=== PATIENT | male | born 1960 | race Caucasian/White ===

== ENCOUNTER 2017-08-05 13:17 | Inpatient (IN) ==
--- NOTE | 2017-08-05 13:46 | Emergency Department Note ---
START Narrative - START START: I examined this patient and my medical decision-making was reviewed with the SPECIAL EFFECTS SPECIALIST/PA/Advanced Practice Nurse/Resident Physician. I agree with the documented findings, disposition and treatment plan as described except to the extent set forth below. I did see the patient upon arrival and he does have advanced lung cancer and did stop chemotherapy 6 months ago and he does have vomiting as well as abdominal pain and on my exam does have some significant pain with guarding and rigidity. Testing pending. The patient received IV fluids and antiemetics. [id number]
[2017-08-05] MEDS ORDERED: Ondansetron 4 MG/2 ML VIAL IVP ONE (13:48)
[2017-08-05] MEDS ORDERED: *HR* FentaNYL (PF) 100 MCG/2 ML VIAL IVP ONE ×5 (13:48→18:25)
--- NOTE | 2017-08-05 14:22 | Emergency Department Note ---
Disposition Clinical Impression: Intractable nausea and vomiting Qualifiers: Vomiting type: unspecified Qualified Code(s): R11.2 - Nausea with vomiting, unspecified Pneumonia Qualifiers: Pneumonia type: due to unspecified organism Laterality: right Lung location: lower lobe of lung Qualified Code(s): J18.1 - Lobar pneumonia, unspecified organism Disposition: Admitted As Inpatient Condition: Fair Reasons to Return/Additional Instructions: Admitted as inpatient Forms: ED Satisfaction Letter, Work/School Release Time of Disposition: 16:33 Abdominal Pain HPI - General Chief Complaint: ED Abdominal Pain Stated Complaint: N/V abd pain Source: patient Mode of arrival: ambulatory Limitations: no limitations Nursing Notes Reviewed: Yes Vital Signs Reviewed: Yes - History of Present Illness HPI Narrative: 56-year-old male with past medical history of stage IV lung carcinoma presents to emergency room with complaint of abdominal pain, nausea, vomiting. This has been present for the past 2 days and he describes it as burning in nature and located diffusely across the abdomen with the worst in the epigastric region. It is associated nausea and vomiting of food contents with some bloody streaking. Denies any changes in bowel movements. States he is not measuring temperatures but he does feel subjective fevers and chills. No exacerbating or relieving symptoms. His appetite has been decreased during this time. He is currently not receiving any form of chemotherapy or radiation but does follow with Dr. Richter at the [facility], [place]. Most recent chemotherapy approximately 6 months ago. Pain Scale: 10 - Related Data Home Medications Medication Instructions Recorded Confirmed Albuterol Sulfate [Proair Hfa] 2 puff IH Q4H PRN 06/10/16 02/16/17 Budesonide/Formoterol 160/4.5 2 puff IH BIDR 06/10/16 02/16/17 [Symbicort 160/4.5] Previous Rx's Medication Instructions Recorded Magic Mouthwash [Magic Mouthwash 10 ml PO QID PRN #240 ml 05/12/16 BLM] Ondansetron HCl [Zofran] 4 mg PO Q6H PRN #30 tablet 05/12/16 Prochlorperazine Maleate 10 mg PO Q6HR PRN #60 tablet 05/12/16 [Compazine] Ferrous Sulfate [Iron] 325 mg PO DAILY #30 tablet 08/05/16 Aspirin Enteric Coated [Aspirin EC] 81 mg PO DAILY #30 tablet. 09/04/16 Omeprazole [PriLOSEC] 20 mg PO DAILY #30 cap 09/04/16 Guaifenesin/Codeine Phosphate 5 - 10 ml PO Q4H PRN #473 liquid 10/15/16 [Guaifenesin-Codeine Syrup] Morphine Sulfate SR (12 HR) [MS 15 mg PO BID PRN #60 tablet.er 02/03/17 Contin] OxyCODONE Immed Rel [Roxicodone 20 20 mg PO TID #90 tab 02/03/17 MG] Lactose-Reduced Food [Ensure Plus] 1 bottle PO TID #90 can 02/16/17 Acetaminophen w/Cod 300-30 mg 1 each PO Q6HR PRN #12 tablet 06/23/17 [Tylenol w/Codeine #3] Allergies Allergy/AdvReac Type Severity Reaction Status Date / Time No Known Allergies Allergy Verified 06/23/17 14:44 All systems ED: reviewed and negative except as stated. Review of Systems: As Per HPI Abdominal Pain PMH - Past Medical History Medical history: Reports: cancer, COPD, other Male Surgical History: Reports: no surgical history Psychiatric history: Reports: no psych history - Social History Smoking status: Current every day smoker Alcohol use: Reports: none Drug use: Reports: none Physical Exam - General Limitations: no limitations General appearance: alert - Head Head exam: atraumatic - ENT ENT exam: normal exam, normal oropharynx, mucous membranes moist - Chest Chest inspection: Present: normal inspection, symmetric chest wall rise - Respiratory Respiratory exam: Present: normal lung sounds bilaterally - Cardiovascular Cardiovascular exam: Present: regular rate, normal rhythm, normal heart sounds - Abdominal Exam Abdominal exam: Present: soft, tenderness, guarding, normal bowel sounds. Absent: distention, rebound, rigidity Abdominal tenderness: Present: epigastrium, suprapubic - Extremities Exam Extremities exam: Present: normal inspection, full ROM. Absent: tenderness, pedal edema - Neurological Exam Neurological exam: Present: alert, oriented X3 - Psychiatric Psychiatric exam: Present: normal affect, normal mood, anxious - Skin Skin exam: Present: warm, dry, intact, normal color Course Course Narrative: We will obtain lab results of CBC, BMP, troponin, lipase. We will obtain symptom control with fentanyl and Zofran and Phenergan. Also obtain abdominal CAT scan Vital Signs Temperature 97.5 F L 08/05/17 13:20 Pulse Rate 83 08/05/17 13:20 Respiratory Rate 22 08/05/17 13:20 Blood Pressure 151/98 08/05/17 13:20 O2 Sat by Pulse Oximetry 99 08/05/17 13:20 Temperature 97.5 F L 08/05/17 13:20 Pulse Rate 83 08/05/17 13:20 Respiratory Rate 22 08/05/17 13:20 Blood Pressure 151/98 08/05/17 13:20 O2 Sat by Pulse Oximetry 99 08/05/17 13:20 Oxygen Delivery Oxygen Delivery Room Air Abdominal Pain - MDM Narrative Medical decision making narrative: 56-year-old male with a history of stage IV lung cancer presents with complaint of abdominal pain, nausea, vomiting. Lab results grossly unremarkable. Abdominal CT scan did reveal metastasis to the adrenal glands as well as a right lower lobe pneumonia. No obvious etiology of his nausea and vomiting aside from metastatic cancer. Patient received multiple doses of fentanyl for pain control and received Zofran for nausea. He did continue to complain of nausea, vomiting and he was given Phenergan with some relief. Did discuss this admission with the hospitalist, who agrees remission at this time for intractable nausea, right lower lobe pneumonia. - Lab Data Result diagrams: 08/05/17 14:32 08/05/17 14:32 Lab Results 08/05/17 08/05/17 08/05/17 Range/Units 14:32 14:32 14:32 WBC 8.5 (4.3-11.1) K/mcL RBC 3.97 L (4.19-5.50) M/mcL Hgb 12.6 L (12.9-16.9) g/dL Hct 37.1 L (37.5-50.1) % MCV 93.5 (83.0-100.0) fL MCH 31.7 (28.0-33.3) pg MCHC 34.0 (31.6-35.5) g/dL RDW 13.2 (11.5-14.5) % Plt Count 343 (140-400) K/mcL MPV 8.6 L (9.4-12.4) fL Immature Gran % 0.4 (0-4) % Seg Neutrophils % 88.4 % Lymphocytes % 7.7 % Monocytes % 3.2 % Eosinophils % 0.2 % Basophils % 0.1 % Neutrophils # 7.5 (1.6-8.9) K/mcL Lymphocytes # 0.7 (0.6-4.6) K/mcL Monocytes # 0.3 (0.0-1.3) K/mcL Eosinophils # 0.0 (0.0-0.6) K/mcL Basophils # 0.0 (0.0-0.2) K/mcL Nucleated RBCs/100 WBC 0.2 H (0) /100 WBC Sodium 134 L (136-145) mEq/L Potassium 4.3 (3.5-5.1) mEq/L Chloride 102 (98-107) mEq/L Carbon Dioxide 25 (23-29) mEq/L BUN 9 (6-20) mg/dL Creatinine 0.56 L (0.70-1.30) mg/dL Est GFR ( Amer) > 60 (> 60) Est GFR (Non-Af Amer) > 60 (> 60) BUN/Creatinine Ratio 16 (6-26) Glucose 133 H (70-105) mg/dL Calculated Osmolality 279 L (280-300) Lactic Acid 0.5 (0.5-2.2) mmol/L Calcium 9.7 (8.6-10.3) mg/dL Total Bilirubin 0.5 (0.3-1.0) mg/dL Direct Bilirubin 0.1 (0.0-0.2) mg/dL Indirect Bilirubin 0.4 (0.0-1.2) mg/dL AST 12 L (13-39) Units/L ALT 14 (7-52) Units/L Alkaline Phosphatase 97 (34-104) Units/L Serum Total Protein 6.8 (6.4-8.9) g/dL Albumin 3.9 (3.5-5.7) g/dL Globulin 2.9 (2.4-3.5) g/dL Albumin/Globulin Ratio 1.3 (1.1-2.2)
[2017-08-05 14:51] LABS: Basophils % 0.1 %; Eosinophils % 0.2 %; Hematocrit 37.1 % (37.5-50.1); Hemoglobin 12.6 g/dL (12.9-16.9); Immature Granulocytes % 0.4 % (0-4); Lymphocytes # 0.7 K/mcL (0.6-4.6); Lymphocytes % 7.7 %; Mean Corpuscular Hemoglobin 31.7 pg (28.0-33.3); Mean Corpuscular Volume 93.5 fL (83.0-100.0); Mean Platelet Volume 8.6 fL (9.4-12.4); Monocytes # 0.3 K/mcL (0.0-1.3); Monocytes % 3.2 %; Neutrophils # 7.5 K/mcL (1.6-8.9); Nucleated Red Blood Cells 0.2 /100 WBC (0); Platelet Count 343 K/mcL (140-400); Red Blood Count 3.97 M/mcL (4.19-5.50); Red Cell Distribution Width 13.2 % (11.5-14.5); Segmented Neutrophils % 88.4 %
[2017-08-05 15:07] LABS: Alanine Aminotransferase 14 Units/L (7-52); Albumin 3.9 g/dL (3.5-5.7); Albumin/Globulin Ratio 1.3 (1.1-2.2); Alkaline Phosphatase 97 Units/L (34-104); Aspartate Amino Transferase 12 Units/L (13-39); BUN/Creatinine Ratio 16 (6-26); Bilirubin,Direct 0.1 mg/dL (0.0-0.2); Bilirubin,Indirect 0.4 mg/dL (0.0-1.2); Bilirubin,Total 0.5 mg/dL (0.3-1.0); Blood Urea Nitrogen 9 mg/dL (6-20); Calcium 9.7 mg/dL (8.6-10.3); Carbon Dioxide 25 mEq/L (23-29); Chloride 102 mEq/L (98-107); Globulin 2.9 g/dL (2.4-3.5); Glucose 133 mg/dL (70-105); Osmolality,Calculated 279 (280-300); Potassium 4.3 mEq/L (3.5-5.1); Sodium 134 mEq/L (136-145); Total Protein 6.8 g/dL (6.4-8.9); eGFR For African Americans > 60 (> 60); eGFR For Non-African Americans > 60 (> 60)
[2017-08-05] MEDS ORDERED: *HR* Promethazine 25 MG/ML VIAL IVP ONE (15:42)
[2017-08-05] MEDS ORDERED: Naloxone 0.4 MG/ML INJ IVP PRN (17:10)
--- NOTE | 2017-08-05 17:15 | Event Note ---
Date of Encounter: 08/05/17 Time of Encounter: 17:12 1. Respiratory distress likely secondary to community-acquired pneumonia, unknown agents *Levaquin, blood cultures 2. History of COPD not oxygen dependent, mild exacerbation Continue Solu-Medrol, duo nebs and oxygen therapy 3. History of lung cancer/metastatic, followed by oncology 4. Tobacco abuse, nicotine patch 5. Intractable epigastric/abdominal pain with intractable nausea and vomiting, may try Dilaudid oral and consider IV pain control Phenergan and Dilaudid as needed CT scan of the abdomen shows no abdominal active findings, only right lower lobe pneumonia *Protonix for GI prophylaxis and Lovenox for DVT prophylaxis. The patient will be admitted for observation. Full code. Time spent on this admission 40 minutes H&P will be dictated by WILIAN Valentine
--- NOTE | 2017-08-05 17:19 | Internal Med History&Physical ---
<Indra Valentine J - Last Filed: 08/05/17 17:28> Date of Encounter: 08/05/17 Time of Encounter: 17:17 Assessment and Plan (1) Pneumonia Current visit: Yes Status: Acute Presents today with respiratory distress secondary to CAP. Does not appear septic, not meeting SIRS criteria. Resting comfortably on room air now. CT of chest shows a patchy airspace opacity in the right lower lobe - Levaquin - blood cultures - Duonebs - solumedrol - CBCD, CMP in AM - Tylenol 650 mg PO q 4-6 hr PRN pain or fever - Resume - Heparin 5000 U SQ BID - Respiratory support per NC; titrate to maintain Spo2 >92% - Continuous tele, and Spo2 monitoring Qualifiers: Pneumonia type: due to unspecified organism Laterality: right Lung location: lower lobe of lung Qualified Code(s): J18.1 - Lobar pneumonia, unspecified organism (2) Intractable nausea and vomiting Current visit: Yes Status: Acute Intractable nausea and vomiting with epigastric/abdominal pain. CT of abdomen and pelvis unremarkable. He has received fentanyl in the emergency department without any relief of pain. He reports that he is unable to swallow. I witnessed him retching multiple times throughout my assessment. It is unclear whether or not he could tolerate oral Dilaudid at this time. We may need to consider IV Dilaudid for better pain control -Continue Phenergan and Zofran -IV Dilaudid with goal to add oral pain medications once nausea and vomiting subside -Protonix for GI prophylaxis Qualifiers: Vomiting type: unspecified Qualified Code(s): R11.2 - Nausea with vomiting , unspecified (3) COPD (chronic obstructive pulmonary disease) Current visit: Yes Status: Acute History of COPD, not in acute exacerbation. Does not wear O2 at home, currently resting comfortable on room air. Initially presented with some mild respiratory distress but it has since subsided. -Continue duo nebs and Solu-Medrol -Nasal cannula as needed for respiratory support Qualifiers: COPD type: unspecified COPD Qualified Code(s): J44.9 - Chronic obstructive pulmonary disease, unspecified (4) Tobacco abuse Current visit: Yes Status: Acute Continues to smoke, nicotine patch (5) Non-small cell cancer of right lung Current visit: Yes Status: Chronic Follows with obtained oncology. Not currently receiving chemotherapy or radiation. Last treatment was approximately 6 months ago. (6) DVT prophylaxis Current visit: Yes Status: Acute Heparin 5000 units SC BID Internal Medicine - H&P: HPI Chief complaint: NAUSEA AND VOMITING, ABDOMINAL PAIN Admitted From: Home Plans for Post Hospital Care: Home History of present illness: Mr. Burris is a 56 year old male with a PMH of cancer, COPD and stage IV non- small cell carcinoma. He presents to [facility] today with three-day history of nausea, vomiting and diffuse abdominal pain. He describes abdominal pain as burning and worsening epigastric region. The patient reports that he has been able to tolerate oral intake for the last couple of days. He admits to a small amount of fluid in his emesis. Denies any fevers, chills, chest pain, shortness of breath, changes in bowel pattern, or diarrhea. Reports no exacerbating or alleviating symptoms. He is currently not receiving chemotherapy or radiation has not had a follow-up with Dr. Richter in a while. He reports his last treatment for approximately 6 months ago and is currently unclear as to whether or not he wants to continue pursue treatment. Past Med Surg Social Fam HX - Past Medical History Medical history: cancer, COPD, other Psychiatric history: no psych history - Past Surgical History Surgical History: no surgical history - Social History Smoking Status: Current every day smoker Smokeless Tobacco Status: No Alcohol use: none Drug use: none - Family History Mother Living Status: Hx Family Cardiac Disorders: Yes Hx Family Cancer: Yes Hx Family Endocrine Disorder: Yes (DM) Father Hx Family Respiratory Disorders: Yes (COPD) Internal Medicine - H&P: Meds Magic Mouthwash [Magic Mouthwash BLM] 10 ml PO QID PRN #240 ml 05/12/16 [Rx] Ondansetron HCl [Zofran] 4 mg PO Q6H PRN #30 tablet 05/12/16 [Rx] Prochlorperazine Maleate [Compazine] 10 mg PO Q6HR PRN #60 tablet 05/12/16 [Rx] Ferrous Sulfate [Iron] 325 mg PO DAILY #30 tablet 08/05/16 [Rx] Aspirin Enteric Coated [Aspirin EC] 81 mg PO DAILY #30 tablet. 09/04/16 [Rx] Omeprazole [PriLOSEC] 20 mg PO DAILY #30 cap 09/04/16 [Rx] Guaifenesin/Codeine Phosphate [Guaifenesin-Codeine Syrup] 5 - 10 ml PO Q4H PRN # 473 liquid 10/15/16 [Rx] Lactose-Reduced Food [Ensure Plus] 1 bottle PO TID #90 can 02/16/17 [Rx] Albuterol Sulfate [Ventolin Hfa] 2 puff IH Q4H PRN 08/05/17 [History] Fluticasone/Vilanterol [Breo Ellipta 100-25 Mcg INH] 1 puff IH DAILY 08/05/17 [ History] OxyCODONE Immed Rel [Roxicodone 10 MG] 10 - 20 mg PO Q6H PRN 08/05/17 [History] 3 Allergy/AdvReac Type Severity Reaction Status Date / Time No Known Allergies Allergy Verified 06/23/17 14:44 All Systems PM: A 10-system review of systems was performed and is negative for pertinent findings except as documented above in the HPI. - Constitutional Constitutional: fatigue, weakness, no chills, no fever(s), no falls, no night sweats, no weight gain - Cardiovascular Cardiovascular ROS IM: no chest pain, no diaphoresis, no dyspnea, no lightheadedness, no palpitations, no syncope - Respiratory Respiratory: no cough, no dyspnea, no wheezing, no excessive phlegm production - Gastrointestinal Gastrointestinal: as per HPI, abdominal pain, nausea, vomiting, no diarrhea, no hematemesis, no hematochezia Additional comments: Burning diffuse abdominal pain, with epigastric tenderness - Genitourinary Genitourinary ROS male: no difficulty urinating, no dysuria, no flank pain - Musculoskeletal Musculoskeletal ROS IM: no numbness, no tingling - Integumentary Integumentary IM: no rash, no unusual bruising - Neurological Neurological ROS: no confusion, no convulsions, no focal weakness, no numbness, no tingling, no tremor(s) - Constitutional Vitals: Temp Pulse Resp BP Pulse Ox 97.5 F L 91 18 139/102 97 08/05/17 13:20 08/05/17 16:50 08/05/17 16:50 08/05/17 16:50 08/05/17 16:50 General appearance: Present: cooperative, A&O X 3, no acute distress, answers questions appropriately - Head Head exam: Present: atraumatic, normocephalic - Eye Pupils: Present: PERRL - Respiratory Respiratory exam: Present: CTAB. Absent: accessory muscle use, rales, rhonchi, wheezes - Cardiovascular Cardiovascular exam: Present: RRR, +S1, +S2. Absent: diastolic murmur, gallop, rubs, systolic murmur - GI/Abdominal GI/Abdominal exam: Present: normal bowel sounds, soft, tenderness (epigastric and LLQ; CT of abdomen unremarkable). Absent: distended, firm, guarding, hepatomegaly, rebound - Extremities Exam Extremities exam: Present: normal capillary refill, normal inspection, warm, radial pulses palpable and symmetrical. Absent: calf tenderness, cyanotic, pedal edema - Neurological Exam Neurological exam: Present: alert, oriented X3. Absent: facial droop, speech deficit - Skin Skin exam: Present: dry, intact Internal Med - H&P Results - Labs CBC & Chem 7: 08/05/17 14:32 08/05/17 14:32 Labs: Short CBC 08/05/17 Range/Units 14:32 WBC 8.5 (4.3-11.1) K/mcL Hgb 12.6 L (12.9-16.9) g/dL Hct 37.1 L (37.5-50.1) % Plt Count 343 (140-400) K/mcL Neutrophils # 7.5 (1.6-8.9) K/mcL BMP 08/05/17 14:32 Sodium 134 L Potassium 4.3 Chloride 102 Carbon Dioxide 25 BUN 9 Creatinine 0.56 L Glucose 133 H Calcium 9.7 Liver Function 08/05/17 Range/Units 14:32 Total Bilirubin 0.5 (0.3-1.0) mg/dL Direct Bilirubin 0.1 (0.0-0.2) mg/dL AST 12 L (13-39) Units/L ALT 14 (7-52) Units/L Alkaline Phosphatase 97 (34-104) Units/L Albumin 3.9 (3.5-5.7) g/dL - EKG Data -: EKG Interpreted by Myself EKG shows normal: sinus rhythm - Impressions ITS Impressions Abdomen/Pelvis CT 08/05/17 15:14 IMPRESSION: 1. No acute findings within the abdomen. 2. Enlarging right adrenal gland mass consistent with progressive metastatic disease. 3. Nonspecific patchy airspace opacity has developed involving the anterior aspect of the right lower lobe. This is concerning for pneumonia although disease progression is not excluded. This is incompletely evaluated. Moderate background emphysema. D/ / 08/05/2017 15:42:42 Cipriano Simon MD / sruthi Interpreting Provider: Cipriano Simon MD <Terrence Kearney H - Last Filed: 08/06/17 12:42> Date of Encounter: 08/06/17 Internal Medicine - H&P: HPI History of present illness: Mr. Burris is a 56 year old male All Systems PM: A 10-system review of systems was performed and is negative for pertinent findings except as documented above in the HPI. - Constitutional Vitals: Temp Pulse Resp BP Pulse Ox 98.5 F 105 18 137/99 97 08/06/17 06:31 08/06/17 11:00 08/06/17 11:12 08/06/17 11:00 08/06/17 11:12 Internal Med - H&P Results - Labs CBC & Chem 7: 08/06/17 01:14 08/06/17 01:14 Labs: Short CBC 08/06/17 Range/Units 01:14 WBC 6.9 (4.3-11.1) K/mcL Hgb 12.5 L (12.9-16.9) g/dL Hct 37.7 (37.5-50.1) % Plt Count 340 (140-400) K/mcL Neutrophils # 6.4 (1.6-8.9) K/mcL BMP 08/06/17 01:14 Sodium 133 L Potassium 4.3 Chloride 100 Carbon Dioxide 24 BUN 11 Creatinine 0.61 L Glucose 134 H Calcium 9.4 Liver Function 08/06/17 Range/Units 01:14 Total Bilirubin 0.5 (0.3-1.0) mg/dL AST 11 L (13-39) Units/L ALT 14 (7-52) Units/L Alkaline Phosphatase 94 (34-104) Units/L Albumin 3.9 (3.5-5.7) g/dL - Attending Attestation 1. Respiratory distress likely secondary to community-acquired pneumonia, unknown agents *Levaquin, blood cultures 2. History of COPD not oxygen dependent, mild exacerbation Continue Solu-Medrol, duo nebs and oxygen therapy 3. History of lung cancer/metastatic, followed by oncology 4. Tobacco abuse, nicotine patch 5. Intractable epigastric/abdominal pain with intractable nausea and vomiting, may try Dilaudid oral and consider IV pain control Phenergan and Dilaudid as needed CT scan of the abdomen shows no abdominal active findings, only right lower lobe pneumonia *Protonix for GI prophylaxis and Lovenox for DVT prophylaxis. The patient will be admitted for observation. Full code. Time spent on this admission 40 minutes I have personally performed a face to face evaluation on this patient. I have reviewed and agree with the care plan. History and Exam by me shows:
[2017-08-05] MEDS ORDERED: *HR* HYDROmorphone 2 MG TABLET PO PRN (18:30)
[2017-08-05] MEDS: Ipratropium/Albuterol Neb 3 ML IH SCH ×2 (19:39→23:13)
[2017-08-05] MEDS: Pantoprazole 40 MG VIAL IVP SCH (20:32)
[2017-08-05] MEDS: MethylPREDNISolone 40 MG/ML VIAL IVP SCH ×2 (20:32→23:32)
[2017-08-05] MEDS: *HR* Heparin 5,000 UNIT/ML VIAL SQ SCH (20:32)
[2017-08-05] MEDS: 0.9 % Sodium Chloride 1,000 ML IVC SCH (20:33)
[2017-08-05] MEDS: Nicotine 21 MG PATCH.TD24 TD SCH (20:33)
[2017-08-05] MEDS: Levofloxacin 750 MG/150 ML 750 MG/150 ML BAG IVPB SCH (20:33)
[2017-08-05] MEDS ORDERED: Ondansetron 4 MG/2 ML VIAL IVP PRN (21:00)
[2017-08-05] MEDS: *HR* FentaNYL (PF) 100 MCG/2 ML VIAL IVP PRN (22:42)
[2017-08-06 01:39] LABS: Basophils % 0.1 %; Hematocrit 37.7 % (37.5-50.1); Hemoglobin 12.5 g/dL (12.9-16.9); Immature Granulocytes % 0.6 % (0-4); Lymphocytes # 0.4 K/mcL (0.6-4.6); Mean Corpuscular HGB Conc 33.2 g/dL (31.6-35.5); Mean Corpuscular Hemoglobin 31.1 pg (28.0-33.3); Mean Corpuscular Volume 93.8 fL (83.0-100.0); Mean Platelet Volume 8.7 fL (9.4-12.4); Monocytes % 0.6 %; Neutrophils # 6.4 K/mcL (1.6-8.9); Platelet Count 340 K/mcL (140-400); Red Blood Count 4.02 M/mcL (4.19-5.50); Red Cell Distribution Width 13.2 % (11.5-14.5); Segmented Neutrophils % 92.7 %
[2017-08-06 01:51] LABS: Alanine Aminotransferase 14 Units/L (7-52); Albumin 3.9 g/dL (3.5-5.7); Albumin/Globulin Ratio 1.4 (1.1-2.2); Alkaline Phosphatase 94 Units/L (34-104); Aspartate Amino Transferase 11 Units/L (13-39); BUN/Creatinine Ratio 18 (6-26); Bilirubin,Total 0.5 mg/dL (0.3-1.0); Blood Urea Nitrogen 11 mg/dL (6-20); Calcium 9.4 mg/dL (8.6-10.3); Carbon Dioxide 24 mEq/L (23-29); Chloride 100 mEq/L (98-107); Globulin 2.8 g/dL (2.4-3.5); Glucose 134 mg/dL (70-105); Osmolality,Calculated 277 (280-300); Potassium 4.3 mEq/L (3.5-5.1); Sodium 133 mEq/L (136-145); Total Protein 6.7 g/dL (6.4-8.9); eGFR For African Americans > 60 (> 60); eGFR For Non-African Americans > 60 (> 60)
[2017-08-06] MEDS: *HR* Promethazine 25 MG/ML VIAL IVP PRN ×2 (01:55→11:37)
[2017-08-06] MEDS: *HR* FentaNYL (PF) 100 MCG/2 ML VIAL IVP PRN ×2 (02:34→11:37)
[2017-08-06] MEDS: Ipratropium/Albuterol Neb 3 ML IH SCH ×4 (03:37→15:41)
[2017-08-06] MEDS: Pantoprazole 40 MG VIAL IVP SCH ×2 (05:44→16:15)
[2017-08-06] MEDS: *HR* Heparin 5,000 UNIT/ML VIAL SQ SCH ×2 (05:44→16:15)
[2017-08-06] MEDS: MethylPREDNISolone 40 MG/ML VIAL IVP SCH ×3 (05:44→16:15)
[2017-08-06] MEDS: 0.9 % Sodium Chloride 1,000 ML IVC SCH (08:02)
[2017-08-06] MEDS: Levofloxacin 750 MG/150 ML 750 MG/150 ML BAG IVPB SCH (08:02)
[2017-08-06] MEDS: Nicotine 21 MG PATCH.TD24 TD SCH (08:05)
--- NOTE | 2017-08-06 08:34 | Internal Med Progress Note ---
Date of Encounter: 08/06/17 Time of Encounter: 08:34 - Subjective Interval history: HPI (From H&P): Fatuma is a 56 year old male with a PMH of cancer, COPD and stage IV non- small cell carcinoma. He presents to [facility] today with three-day history of nausea, vomiting and diffuse abdominal pain. He describes abdominal pain as burning and worsening epigastric region. The patient reports that he has been able to tolerate oral intake for the last couple of days. He admits to a small amount of fluid in his emesis. Denies any fevers, chills, chest pain, shortness of breath, changes in bowel pattern, or diarrhea. Reports no exacerbating or alleviating symptoms. He is currently not receiving chemotherapy or radiation has not had a follow-up with Dr. Richter in a while. He reports his last treatment for approximately 6 months ago and is currently unclear as to whether or not he wants to continue pursue treatment. PNA: Continue current antibiotics Bronchodilators Blood cultures obtained NSCLC: CT-A/P done in ER for right abdoinal pain showed progression of right Adrenal mass MedOnc consulted and pt will f/u as OP VTE prophylaxis: SQ heparin - Constitutional Vitals: Temp Pulse Resp BP Pulse Ox 98.5 F 112 15 112/95 96 08/06/17 06:31 08/06/17 06:31 08/06/17 06:31 08/06/17 06:31 08/06/17 06:31 General appearance: Present: cooperative, A&O X 3, no acute distress, answers questions appropriately - Head Head exam: Present: atraumatic, normocephalic - Eye Eye exam: Present: PERRL, conjuntiva pink, sclera anicteric Pupils: Present: PERRL - Neck Neck exam general surgery: Present: lymphadenopathy, supple, trachea midline - Respiratory Respiratory exam: Present: rales. Absent: accessory muscle use, rhonchi, wheezes - Cardiovascular Cardiovascular exam: Present: RRR, +S1, +S2. Absent: diastolic murmur, gallop, rubs, systolic murmur - GI/Abdominal GI/Abdominal exam: Present: normal bowel sounds, soft, no peritoneal signs. Absent: distended, tenderness - Extremities Exam Extremities exam: Present: warm, radial pulses palpable and symmetrical. Absent : calf tenderness, cyanotic, pedal edema - Neurological Exam Neurological exam: Present: CN II-XII intact, oriented X3, no focal deficits. Absent: pronater drift, facial droop, speech deficit - Psychiatric Psychiatric exam: Present: normal affect, normal mood - Skin Skin exam: Present: dry, intact Internal Medicine: Result - Labs CBC & Chem 7: 08/06/17 01:14 08/06/17 01:14 Labs: Short CBC 08/06/17 Range/Units 01:14 WBC 6.9 (4.3-11.1) K/mcL Hgb 12.5 L (12.9-16.9) g/dL Hct 37.7 (37.5-50.1) % Plt Count 340 (140-400) K/mcL Neutrophils # 6.4 (1.6-8.9) K/mcL BMP 08/06/17 01:14 Sodium 133 L Potassium 4.3 Chloride 100 Carbon Dioxide 24 BUN 11 Creatinine 0.61 L Glucose 134 H Calcium 9.4 Liver Function 08/06/17 Range/Units 01:14 Total Bilirubin 0.5 (0.3-1.0) mg/dL AST 11 L (13-39) Units/L ALT 14 (7-52) Units/L Alkaline Phosphatase 94 (34-104) Units/L Albumin 3.9 (3.5-5.7) g/dL Consult Discharge Plan - Plan Referrals: Skyler Yost DO [Primary Care Provider] -
--- NOTE | 2017-08-06 11:09 | Event Note ---
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 According to notes from his last visit in January 2017, after discussion with treating oncologist Dr. Paul, he was planned to start Nivolumab treatments Q2 weeks. His last Nivolumab treatment was February 09, 2017, since that time he has no showed multiple appointments at our office and stopped attending treatment. Patient appears to have multiple psychosocial factors which are complicating his care. I am unable to pinpoint an exact reason as to why he stopped following up with us from our discussion today, but he seems frustrated with his cancer diagnosis, he states he did not tolerate his Nivolumab treatment well but cannot tell me exactly what symptoms were bothersome or intolerable, and states he has been helping with a family member who was recently evicted which wrapped up all his time over the past few months. I discussed his recent radiographic findings concerning for further progression with patient and patients daughter today. He was given a follow up with Dr. Paul next week along with a follow up with Dr. Ohara in radiation. Patient states he is interested in discussing options for treatment, he is not interested in pursuing Hospice or Palliative Care at this time. I encouraged him to attend his follow up appointments next week for further goals of care and treatment option discussion. Discussed case with attending hospitalist overseeing his care, he was admitted with nausea and vomiting, he was also found to have pneumonia. He is improving and likely planned for discharge soon.
[2017-08-06 13:27] LABS: Bilirubin,Urine Negative (Negative); Blood,Urine Negative (Negative); Clarity,Urine Clear (Clear); Color,Urine Yellow (Yellow); Glucose,Urine (UA) Normal (Normal); Ketones,Urine Negative (Negative); Leukocyte Esterase,Urine Negative (Negative); Nitrite,Urine Negative (Negative); Protein,Urine Negative (Neg-Trace); Specific Gravity,Urine 1.007 (1.010-1.025); Urobilinogen,Urine Normal (Normal)
[2017-08-06] MEDS ORDERED: *HR* OxyCODONE Immed Rel 5 MG TABLET PO PRN (14:15)
[2017-08-06 15:41] VITALS: BP 109/78
--- NOTE | 2017-08-06 23:05 | Discharge Summary ---
Date of Encounter: 08/06/17 Time of Encounter: 17:30 Hospital course: LEFT AMA HPI (From H&P): Fatuma is a 56 year old male with a PMH of cancer, COPD and stage IV non- small cell carcinoma. He presents to [facility] today with three-day history of nausea, vomiting and diffuse abdominal pain. He describes abdominal pain as burning and worsening epigastric region. The patient reports that he has been able to tolerate oral intake for the last couple of days. He admits to a small amount of fluid in his emesis. Denies any fevers, chills, chest pain, shortness of breath, changes in bowel pattern, or diarrhea. Reports no exacerbating or alleviating symptoms. He is currently not receiving chemotherapy or radiation has not had a follow-up with Dr. Richter in a while. He reports his last treatment for approximately 6 months ago and is currently unclear as to whether or not he wants to continue pursue treatment. PNA: Continue current antibiotics Bronchodilators Blood cultures obtained NSCLC: CT-A/P done in ER for right abdoinal pain showed progression of right Adrenal mass MedOnc consulted and pt will f/u as OP VTE prophylaxis: SQ heparin - Time Spent with Patient Total time spent providing and/or coordinating discharge services: - Discharge Medications Home Medications: Magic Mouthwash [Magic Mouthwash BLM] 10 ml PO QID PRN #240 ml 05/12/16 [Rx] Ondansetron HCl [Zofran] 4 mg PO Q6H PRN #30 tablet 05/12/16 [Rx] Prochlorperazine Maleate [Compazine] 10 mg PO Q6HR PRN #60 tablet 05/12/16 [Rx] Ferrous Sulfate [Iron] 325 mg PO DAILY #30 tablet 08/05/16 [Rx] Aspirin Enteric Coated [Aspirin EC] 81 mg PO DAILY #30 tablet. 09/04/16 [Rx] Omeprazole [PriLOSEC] 20 mg PO DAILY #30 cap 09/04/16 [Rx] Guaifenesin/Codeine Phosphate [Guaifenesin-Codeine Syrup] 5 - 10 ml PO Q4H PRN # 473 liquid 10/15/16 [Rx] Lactose-Reduced Food [Ensure Plus] 1 bottle PO TID #90 can 02/16/17 [Rx] Albuterol Sulfate [Ventolin Hfa] 2 puff IH Q4H PRN 08/05/17 [History] Fluticasone/Vilanterol [Breo Ellipta 100-25 Mcg INH] 1 puff IH DAILY 08/05/17 [ History] OxyCODONE Immed Rel [Roxicodone 10 MG] 10 - 20 mg PO Q6H PRN 08/05/17 [History] Allergies/Adverse Reactions: 3 Allergy/AdvReac Type Severity Reaction Status Date / Time No Known Allergies Allergy Verified 06/23/17 14:44 Date of admission: 08/05/17 19:18 Primary care physician: Mak Christopher Consults: 08/05/17 22:40 Consult to Nutrition [CONS] Routine Comment: Consulting Provider: NUTRITION Reason for Dietary Consult: MST Score - Constitutional Vitals: Temp Pulse Resp BP Pulse Ox 98.5 F 118 16 109/78 95 08/06/17 15:00 08/06/17 15:00 08/06/17 15:42 08/06/17 15:00 08/06/17 15:42 General appearance: Present: cooperative, A&O X 3, no acute distress, answers questions appropriately - Head Head exam: Present: atraumatic, normocephalic - Eye Eye exam: Present: PERRL, conjuntiva pink, sclera anicteric Pupils: Present: PERRL - Neck Neck exam general surgery: Present: supple, trachea midline. Absent: lymphadenopathy - Respiratory Respiratory exam: Present: CTAB. Absent: accessory muscle use, rales, rhonchi, wheezes - Cardiovascular Cardiovascular exam: Present: RRR, +S1, +S2. Absent: diastolic murmur, gallop, rubs, systolic murmur - GI/Abdominal GI/Abdominal exam: Present: normal bowel sounds, soft, no peritoneal signs. Absent: distended, tenderness - Extremities Exam Extremities exam: Present: warm, radial pulses palpable and symmetrical. Absent : calf tenderness, cyanotic, pedal edema - Neurological Exam Neurological exam: Present: CN II-XII intact, oriented X3, no focal deficits. Absent: pronater drift, facial droop, speech deficit - Skin Skin exam: Present: dry, intact - Patient Status Disposition: Left Against Medical Advice Condition: Fair - Discharge Instructions Follow Up With: Skyler Yost DO [Primary Care Provider] -
== END 2017-08-06 17:30 | disposition left against medical advice (07) | DRG 139 ==
LOC: EMEROO 13:17 → 2NENU 19:18
PROVIDERS: ADMIT Family Medicine; ATTEND Internal Medicine

== ENCOUNTER 2017-08-07 00:32 | Inpatient (IN) ==
[2017-08-07] MEDS ORDERED: *HR* FentaNYL (PF) 100 MCG/2 ML VIAL IVP ONE (00:49)
[2017-08-07] MEDS ORDERED: Ondansetron 4 MG/2 ML VIAL IVP ONE (00:49)
--- NOTE | 2017-08-07 01:10 | Emergency Department Note ---
Disposition Clinical Impression: Nausea and vomiting Qualifiers: Vomiting type: unspecified Vomiting Intractability: intractable Qualified Code( s): R11.2 - Nausea with vomiting, unspecified Abdominal pain Qualifiers: Abdominal location: generalized Qualified Code(s): R10.84 - Generalized abdominal pain Disposition: Admitted As Inpatient Condition: Fair General Adult HPI - General Chief complaint: ED Abdominal Pain Stated complaint: has cancer left ama today Time Seen by Provider: 08/07/17 00:42 Source: patient, family Limitations: no limitations Nursing Notes Reviewed: Yes Vital Signs Reviewed: Yes - History of Present Illness HPI Narrative: 56-year-old male with significant past medical history of stage IV metastatic lung cancer presenting to the emergency department after signing out AMA today from the hospital. Patient states he said increased nausea, vomiting and pain since leaving. Patient was being treated for pneumonia. Daughter in the room provides majority of the history of present illness. She states the patient stopped following with his oncologist around January. He does not have any pain medications or antinausea medications at home. He thought that he was feeling better and left AMA. Pain Scale: 10 - Related Data Home Medications Medication Instructions Recorded Confirmed Albuterol Sulfate [Ventolin Hfa] 2 puff IH Q4H PRN 08/05/17 08/05/17 Fluticasone/Vilanterol [Breo 1 puff IH DAILY 08/05/17 08/05/17 Ellipta 100-25 Mcg INH] OxyCODONE Immed Rel [Roxicodone 10 10 - 20 mg PO Q6H PRN 08/05/17 08/05/17 MG] Previous Rx's Medication Instructions Recorded Magic Mouthwash [Magic Mouthwash 10 ml PO QID PRN #240 ml 05/12/16 BLM] Ondansetron HCl [Zofran] 4 mg PO Q6H PRN #30 tablet 05/12/16 Prochlorperazine Maleate 10 mg PO Q6HR PRN #60 tablet 05/12/16 [Compazine] Ferrous Sulfate [Iron] 325 mg PO DAILY #30 tablet 08/05/16 Aspirin Enteric Coated [Aspirin EC] 81 mg PO DAILY #30 tablet. 09/04/16 Omeprazole [PriLOSEC] 20 mg PO DAILY #30 cap 09/04/16 Guaifenesin/Codeine Phosphate 5 - 10 ml PO Q4H PRN #473 liquid 10/15/16 [Guaifenesin-Codeine Syrup] Lactose-Reduced Food [Ensure Plus] 1 bottle PO TID #90 can 02/16/17 Allergies Allergy/AdvReac Type Severity Reaction Status Date / Time No Known Allergies Allergy Verified 06/23/17 14:44 All systems ED: reviewed and negative except as stated. Gastrointestinal: Reports: abdominal pain, nausea, vomiting Past Medical History - Past Medical History Attestation: Yes The following information was validated with the patient. Medical history: Reports: cancer, COPD, other Surgical history: Reports: no surgical history Psychiatric history: Reports: no psych history - Social History Smoking Status: Former smoker Smokeless Tobacco Status: No Alcohol use: Reports: none Drug use: Reports: none Physical Exam - General Limitations: no limitations General appearance: alert, in distress - Head Head exam: atraumatic, normocephalic, normal inspection - Eye Eye exam: Present: normal appearance. Absent: scleral icterus, conjunctival injection - ENT ENT exam: normal exam, mucous membranes dry - Neck Neck exam: Present: normal inspection. Absent: tenderness, meningismus - Chest Chest inspection: Present: normal inspection, symmetric chest wall rise. Absent : tenderness, rash - Respiratory Respiratory exam: Present: other (Decreased breath sounds throughout) - Cardiovascular Cardiovascular exam: Present: normal rhythm, tachycardia - Abdominal Exam Abdominal exam: Present: soft, tenderness, guarding. Absent: distention, rebound, rigidity Abdominal tenderness: Present: diffuse, severe - Extremities Exam Extremities exam: Present: normal inspection, full ROM - Neurological Exam Neurological exam: Present: alert, oriented X3 - Skin Skin exam: Present: warm, dry Course Course Narrative: 56-year-old male who left AMA from the hospital today with stage IV metastatic lung cancer presenting with nausea, vomiting and increased pain. Patient would like to be readmitted to the hospital. Patient is alert and oriented 3 in the room. Actively vomiting throughout physical exam. Physical exam shows diffuse severe abdominal pain and tenderness. We will obtain basic laboratory including CBC and BMP and provide him with IV antinausea medications. We will then admit the patient. Patient agrees with this plan. Patient is tachycardic but otherwise vital signs are stable. - Reevaluation(s) Reevaluation #1: Patient has elevated white blood cell count otherwise unremarkable. We will plan to admit the patient at this time for continued medical management. I spoke with the hospitalist on-call Dr. Rodriguez who agrees to accept the patient at this time. Patient is alert and oriented 3 in the room. Tachycardic but otherwise stable. Vital Signs Temperature 97.9 F 08/07/17 00:33 Pulse Rate 105 08/07/17 00:33 Respiratory Rate 22 08/07/17 00:33 Blood Pressure 149/85 08/07/17 00:33 O2 Sat by Pulse Oximetry 99 08/07/17 00:33 Temperature 97.9 F 08/07/17 00:33 Pulse Rate 106 08/07/17 01:34 Respiratory Rate 20 08/07/17 02:34 Blood Pressure 133/101 08/07/17 02:34 O2 Sat by Pulse Oximetry 98 08/07/17 01:34 Oxygen Delivery Oxygen Delivery Room Air Medical Decision Making - Lab Data Result diagrams: 08/07/17 01:05 08/07/17 01:05 Lab Results 08/07/17 08/07/17 Range/Units 01:05 01:05 WBC 15.2 H D (4.3-11.1) K/mcL RBC 3.71 L (4.19-5.50) M/mcL Hgb 11.6 L (12.9-16.9) g/dL Hct 35.4 L (37.5-50.1) % MCV 95.4 (83.0-100.0) fL MCH 31.3 (28.0-33.3) pg MCHC 32.8 (31.6-35.5) g/dL RDW 13.7 (11.5-14.5) % Plt Count 339 (140-400) K/mcL MPV 8.9 L (9.4-12.4) fL Immature Gran % 0.7 (0-4) % Seg Neutrophils % 88.2 % Lymphocytes % 5.0 % Monocytes % 6.0 % Eosinophils % 0.0 % Basophils % 0.1 % Neutrophils # 13.4 H (1.6-8.9) K/mcL Lymphocytes # 0.8 (0.6-4.6) K/mcL Monocytes # 0.9 (0.0-1.3) K/mcL Eosinophils # 0.0 (0.0-0.6) K/mcL Basophils # 0.0 (0.0-0.2) K/mcL Sodium 135 L (136-145) mEq/L Potassium 4.1 (3.5-5.1) mEq/L Chloride 104 (98-107) mEq/L Carbon Dioxide 23 (23-29) mEq/L BUN 18 (6-20) mg/dL Creatinine 0.74 (0.70-1.30) mg/dL Est GFR ( Amer) > 60 (> 60) Est GFR (Non-Af Amer) > 60 (> 60) BUN/Creatinine Ratio 24 (6-26) Glucose 159 H (70-105) mg/dL Calculated Osmolality 285 (280-300) Calcium 9.3 (8.6-10.3) mg/dL Total Bilirubin 0.2 L (0.3-1.0) mg/dL AST 12 L (13-39) Units/L ALT 15 (7-52) Units/L Alkaline Phosphatase 86 (34-104) Units/L Serum Total Protein 6.3 L (6.4-8.9) g/dL Albumin 3.8 (3.5-5.7) g/dL Globulin 2.5 (2.4-3.5) g/dL Albumin/Globulin Ratio 1.5 (1.1-2.2) Lipase 40 (11-82) Units/L Attestation Statement - Attestation Attestation: I examined this patient and my medical decision-making was reviewed with the Resident Physician. I agree with the documented findings, disposition and treatment plan as described except to the extent set forth below. Patient presents to the ED with a chief complaint of not feeling well. Patient was seen 2 days ago for the same thing. He currently has metastatic cancer. He was admitted for pain control for abdominal pain and for shortness of breath. He left AMA today because he is feeling better. He is back tonight states that his stomach pain is not controlled. He has been vomiting. Patient is retching on exam. Writhing in the bed. Holding his abdomen. He has upper abdominal tenderness. Lungs diminished. Plan. Basic labs and symptom control. Likely readmission.
[2017-08-07 01:14] LABS: Basophils % 0.1 %; Hematocrit 35.4 % (37.5-50.1); Hemoglobin 11.6 g/dL (12.9-16.9); Immature Granulocytes % 0.7 % (0-4); Lymphocytes # 0.8 K/mcL (0.6-4.6); Mean Corpuscular HGB Conc 32.8 g/dL (31.6-35.5); Mean Corpuscular Hemoglobin 31.3 pg (28.0-33.3); Mean Corpuscular Volume 95.4 fL (83.0-100.0); Mean Platelet Volume 8.9 fL (9.4-12.4); Monocytes # 0.9 K/mcL (0.0-1.3); Platelet Count 339 K/mcL (140-400); Red Blood Count 3.71 M/mcL (4.19-5.50); Red Cell Distribution Width 13.7 % (11.5-14.5); Segmented Neutrophils % 88.2 %
[2017-08-07 01:15] LABS: Neutrophils # 13.4 K/mcL (1.6-8.9)
[2017-08-07 01:33] LABS: Alanine Aminotransferase 15 Units/L (7-52); Albumin 3.8 g/dL (3.5-5.7); Albumin/Globulin Ratio 1.5 (1.1-2.2); Alkaline Phosphatase 86 Units/L (34-104); Aspartate Amino Transferase 12 Units/L (13-39); BUN/Creatinine Ratio 24 (6-26); Bilirubin,Total 0.2 mg/dL (0.3-1.0); Blood Urea Nitrogen 18 mg/dL (6-20); Calcium 9.3 mg/dL (8.6-10.3); Carbon Dioxide 23 mEq/L (23-29); Chloride 104 mEq/L (98-107); Globulin 2.5 g/dL (2.4-3.5); Glucose 159 mg/dL (70-105); Lipase 40 Units/L (11-82); Osmolality,Calculated 285 (280-300); Potassium 4.1 mEq/L (3.5-5.1); Sodium 135 mEq/L (136-145); Total Protein 6.3 g/dL (6.4-8.9); eGFR For African Americans > 60 (> 60); eGFR For Non-African Americans > 60 (> 60)
[2017-08-07] MEDS ORDERED: *HR* Promethazine 25 MG/ML VIAL IVP ONE ×3 (01:34→02:19)
--- NOTE | 2017-08-07 03:27 | Internal Med History&Physical ---
Date of Encounter: 08/07/17 Time of Encounter: 03:26 Assessment and Plan (1) Nausea and vomiting Current visit: Yes Status: Acute Qualifiers: Vomiting type: unspecified Vomiting Intractability: intractable Qualified Code(s): R11.2 - Nausea with vomiting, unspecified (2) Abdominal pain Current visit: Yes Status: Acute Qualifiers: Abdominal location: generalized Qualified Code(s): R10.84 - Generalized abdominal pain (3) DVT prophylaxis Current visit: No Status: Acute (4) Non-small cell cancer of right lung Current visit: No Status: Chronic Internal Medicine - H&P: HPI History of present illness: Mr. Burris is a 56 year old male Past Med Surg Social Fam HX - Past Medical History Medical history: cancer, COPD, other Psychiatric history: no psych history - Past Surgical History Surgical History: no surgical history - Social History Smoking Status: Former smoker Smokeless Tobacco Status: No Alcohol use: none Drug use: none - Family History Mother Living Status: Hx Family Cardiac Disorders: Yes Hx Family Cancer: Yes Hx Family Endocrine Disorder: Yes (DM) Father Hx Family Respiratory Disorders: Yes (COPD) Internal Medicine - H&P: Meds Magic Mouthwash [Magic Mouthwash BLM] 10 ml PO QID PRN #240 ml 05/12/16 [Rx] Ondansetron HCl [Zofran] 4 mg PO Q6H PRN #30 tablet 05/12/16 [Rx] Prochlorperazine Maleate [Compazine] 10 mg PO Q6HR PRN #60 tablet 05/12/16 [Rx] Ferrous Sulfate [Iron] 325 mg PO DAILY #30 tablet 08/05/16 [Rx] Aspirin Enteric Coated [Aspirin EC] 81 mg PO DAILY #30 tablet. 09/04/16 [Rx] Omeprazole [PriLOSEC] 20 mg PO DAILY #30 cap 09/04/16 [Rx] Guaifenesin/Codeine Phosphate [Guaifenesin-Codeine Syrup] 5 - 10 ml PO Q4H PRN # 473 liquid 10/15/16 [Rx] Lactose-Reduced Food [Ensure Plus] 1 bottle PO TID #90 can 02/16/17 [Rx] Albuterol Sulfate [Ventolin Hfa] 2 puff IH Q4H PRN 08/05/17 [History] Fluticasone/Vilanterol [Breo Ellipta 100-25 Mcg INH] 1 puff IH DAILY 08/05/17 [ History] OxyCODONE Immed Rel [Roxicodone 10 MG] 10 - 20 mg PO Q6H PRN 08/05/17 [History] 3 Allergy/AdvReac Type Severity Reaction Status Date / Time No Known Allergies Allergy Verified 06/23/17 14:44 All Systems PM: A 10-system review of systems was performed and is negative for pertinent findings except as documented above in the HPI. - Constitutional Vitals: Temp Pulse Resp BP Pulse Ox 97.8 F 97 15 146/88 98 08/07/17 03:02 08/07/17 03:02 08/07/17 03:02 08/07/17 03:02 08/07/17 03:13 Internal Med - H&P Results - Labs CBC & Chem 7: 08/07/17 01:05 08/07/17 01:05
--- NOTE | 2017-08-07 04:19 | Internal Med History&Physical ---
<Missy Carlton - Last Filed: 08/07/17 05:24> Date of Encounter: 08/07/17 Time of Encounter: 03:30 Assessment and Plan (1) Nausea and vomiting Current visit: Yes Status: Acute Alternating Zofran 4 mg IV q6h prn and Phenergan 12.5 mg IV q6h Qualifiers: Vomiting type: unspecified Vomiting Intractability: intractable Qualified Code(s): R11.2 - Nausea with vomiting, unspecified (2) Abdominal pain Current visit: Yes Status: Acute Sublingual oxycodone 10 mg q6h prn. IV fentanyl 50 mcg q3h prn for breakthrough pain. Likely due to severe constipation in conjunction with multiple episodes of emesis today. Qualifiers: Abdominal location: generalized Qualified Code(s): R10.84 - Generalized abdominal pain (3) Constipation Current visit: Yes Status: Acute Likely due to opioid use, compounded by dehydration. Consider Colace 100 mg twice daily and Dulcolax once daily soon as pain, nausea and dehydration under better control. No MiraLAX at this time. Qualifiers: Constipation type: other constipation type Qualified Code(s): K59.09 - Other constipation (4) Dehydration Current visit: Yes Status: Acute Most likely to multiple episodes of emesis today. Replace with IV fluids. (5) Non-small cell cancer of right lung Current visit: No Status: Chronic Non-small cell lung cancer that is stage IV with metastases to right adrenal gland. Was last seen by oncology approximately 6 months ago. Last chemotherapy and radiation treatments approximately 6 months ago. We will consult heme/onc. (6) COPD (chronic obstructive pulmonary disease) Current visit: Yes Status: Chronic Qualifiers: COPD type: unspecified COPD Qualified Code(s): J44.9 - Chronic obstructive pulmonary disease, unspecified (7) DVT prophylaxis Current visit: Yes Status: Acute Heparin subcutaneous Internal Medicine - H&P: HPI Chief complaint: abd pain, intractable N/V Admitted From: Home History of present illness: Mr. Burris is a 56 year old male who presented to the ED for complaints of severe abdominal pain with N/V, these complaints began approximately 5-6 hours after leaving AMA on 08/06/17. Patient initially admitted to [facility] on evening of 08/05/17 for intractable N/V and also received abx treatment for pneumonia. Please note: much of this H&P's information was gathered from review of recent records and from the patient's daughter, who is also present, because pt unable to cooperate as he is acutely distressed and in writhing pain. Per daughter's understanding, patient's primary medical team had not indicated he was clinically suitable for discharge on 08/06/17. However, the patient reportedly felt he was significantly improved and felt he was well enough to go home. On the way home from the hospital the patient stopped at [employer] and ate bowl of chili, once home he ate a second bowl of chili, and consumed a large amount of liquids--this is in addition to eating a meal before leaving the hospital. Since that time he's had 10-15 episodes of vomiting. His abdominal pain is diffuse, but worst at RLQ and described as burning. Denies: chest pain , dyspnea, hematemesis, coffee-ground emesis, diarrhea, bloody bowel movements. Admits: alternating fevers and chills, constipation. Pertinent PMH includes non-small cell lung cancer--stage IV with metastases to right adrenal gland. Last cancer treatment (chemotherapy and radiation) and last visit with oncologists was about 6 months ago. ED course: basic labs and KUB. Basic labs were unremarkable except for an elevated white count of 15.2 and KUB showed mild to moderate stool and gas load in the right and transverse colon. Treatment at the time included fentanyl 100 mcg for pain and nausea control with Zofran and promethazine. Past Med Surg Social Fam HX - Past Medical History Medical history: cancer, COPD, other Psychiatric history: no psych history - Past Surgical History Surgical History: no surgical history - Social History Smoking Status: Former smoker Smokeless Tobacco Status: No Alcohol use: none Drug use: none - Family History Mother Living Status: Hx Family Cardiac Disorders: Yes Hx Family Cancer: Yes Hx Family Endocrine Disorder: Yes (DM) Father Hx Family Respiratory Disorders: Yes (COPD) Internal Medicine - H&P: Meds Magic Mouthwash [Magic Mouthwash BLM] 10 ml PO QID PRN #240 ml 05/12/16 [Rx] Ondansetron HCl [Zofran] 4 mg PO Q6H PRN #30 tablet 05/12/16 [Rx] Prochlorperazine Maleate [Compazine] 10 mg PO Q6HR PRN #60 tablet 05/12/16 [Rx] Ferrous Sulfate [Iron] 325 mg PO DAILY #30 tablet 08/05/16 [Rx] Aspirin Enteric Coated [Aspirin EC] 81 mg PO DAILY #30 tablet. 09/04/16 [Rx] Omeprazole [PriLOSEC] 20 mg PO DAILY #30 cap 09/04/16 [Rx] Guaifenesin/Codeine Phosphate [Guaifenesin-Codeine Syrup] 5 - 10 ml PO Q4H PRN # 473 liquid 10/15/16 [Rx] Lactose-Reduced Food [Ensure Plus] 1 bottle PO TID #90 can 02/16/17 [Rx] Albuterol Sulfate [Ventolin Hfa] 2 puff IH Q4H PRN 08/05/17 [History] Fluticasone/Vilanterol [Breo Ellipta 100-25 Mcg INH] 1 puff IH DAILY 08/05/17 [ History] OxyCODONE Immed Rel [Roxicodone 10 MG] 10 - 20 mg PO Q6H PRN 08/05/17 [History] 3 Allergy/AdvReac Type Severity Reaction Status Date / Time No Known Allergies Allergy Verified 06/23/17 14:44 ROS unobtainable: other (Acutely distressed secondary to pain) All Systems PM: A 10-system review of systems was performed and is negative for pertinent findings except as documented above in the HPI. - Constitutional Vitals: Temp Pulse Resp BP Pulse Ox 97.8 F 97 15 146/88 98 08/07/17 03:02 08/07/17 03:02 08/07/17 03:02 08/07/17 03:02 08/07/17 03:13 General appearance: Present: A&O X 3, severe distress, underweight - Head Head exam: Present: atraumatic, normocephalic - Eye Eye exam: Present: EOMI, normal appearance - Respiratory Respiratory exam: Present: decreased breath sounds (Bilateral), CTAB. Absent: respiratory distress - Cardiovascular Cardiovascular exam: Present: RRR, +S1, +S2. Absent: diastolic murmur, systolic murmur - GI/Abdominal GI/Abdominal exam: Present: soft, tenderness, no peritoneal signs. Absent: distended, guarding, mass, pulsatile mass, rebound, rigid Additional comments: Bowel sounds present - Extremities Exam Extremities exam: Absent: cyanotic, pedal edema, tenderness - Neurological Exam Neurological exam: Present: alert, oriented X3, no focal deficits. Absent: speech deficit Internal Med - H&P Results - Labs CBC & Chem 7: 08/07/17 01:05 08/07/17 01:05 <Mukesh Bah - Last Filed: 08/07/17 07:07> Date of Encounter: 08/07/17 Time of Encounter: 05:50 - Constitutional Vitals: Temp Pulse Resp BP Pulse Ox 97.8 F 97 15 146/88 98 08/07/17 03:02 08/07/17 03:02 08/07/17 03:02 08/07/17 03:02 08/07/17 03:13 General appearance: Present: cachectic, A&O X 3, severe distress, underweight Exam: dehydrated and in significant pain -- better now compared to presentation - Head Head exam: Present: normal inspection - Eye Eye exam: Present: EOMI, normal appearance, PERRL. Absent: scleral icterus - ENT ENT exam: Present: mucous membranes dry, normal exam - Neck Neck exam general surgery: Present: supple. Absent: tenderness, nuchal rigidity , thyromegaly - Respiratory Respiratory exam: Present: CTAB. Absent: rales, respiratory distress, rhonchi, wheezes - Cardiovascular Cardiovascular exam: Present: RRR, +S1, +S2 - GI/Abdominal GI/Abdominal exam: Present: soft, tenderness, no peritoneal signs - Extremities Exam Extremities exam: Present: normal capillary refill, warm, radial pulses palpable and symmetrical. Absent: calf tenderness Additional comments: atrophy of muscles - Back Exam Back exam: Absent: CVA tenderness (L), CVA tenderness (R) - Neurological Exam Neurological exam: Present: no focal deficits - Psychiatric Psychiatric exam: Present: agitated - Skin Skin exam: Present: dry, warm. Absent: rash Internal Med - H&P Results - Labs CBC & Chem 7: 08/07/17 01:05 08/07/17 01:05 - Diagnostic Studies Abdominal x-ray Status: image reviewed by me (full of stool) - Attending Attestation I discussed the patient [place], past medical history, lab data, review of systems , and exam findings with Dr. Ruby. I then saw, evaluated, examined, and discussed with patient and his daughter at length the issues and exam findings and concerns I have. When I first arrived in the room, patient's daughter requested transfer to [place] to [facility]. I recommended that we try and treat his pain, hydrate him, treat his nausea and stabilize him before we considered transfer. Additionally, I would like to have oncology see him in consultation to discuss any recommendations they might have. Once patient's daughter calmed down and patient's pain was under control, they were very receptive and agreeable to plan. Patient's daughter then stated she preferred to stay here at [facility] rather than go to [place]. However, patient has been frustrated with his cancer care in recent months. Of note, however, the patient has not seen an oncologist since January 2017. Furthermore, he left [facility] yesterday, ate a significant amount of food, and now presents with intractable pain, nausea, and vomiting. We are going to hydrate him, optimize his pain control with IV narcotics and oral narcotics as tolerated, control his nausea with antiemetics, and then hopefully work on moving his bowels to relieve the constipation. Once I explained this plan to patient and his daughter, they were very agreeable with the plan of care. They would like to meet with oncology today and will likely stay here unless there concerns are not addressed. I discussed with patient's nurse our plan and informed her of the medication changes. We will consult oncology, and I will ask the day team hospitalist to discuss with oncology the concerns the patient and family have. If they still request transfer to [facility] then, we will try and contact them later today and requests such measures. Patient and daughter agree with such plan. Other than my comments above and noted exam findings, I agree with Dr. Ruby' s assessment and plan.
[2017-08-07] MEDS ORDERED: Naloxone 0.4 MG/ML INJ IVP PRN (04:36)
[2017-08-07] MEDS ORDERED: 0.9 % Sodium Chloride 1,000 ML IVC SCH (04:45)
[2017-08-07] MEDS ORDERED: *HR* OxyCODONE/APAP 10/325 TABLET PO PRN (05:25)
[2017-08-07] MEDS: *HR* FentaNYL (PF) 100 MCG/2 ML VIAL IVP PRN ×4 (05:45→21:11)
[2017-08-07] MEDS: *HR* Promethazine 25 MG/ML VIAL IVP PRN ×2 (06:24→12:56)
[2017-08-07 08:00] LABS: Magnesium 1.9 mg/dL (1.6-2.6); Phosphorous 1.7 mg/dL (2.7-4.5)
[2017-08-07] MEDS ORDERED: Levofloxacin 500 MG/100 ML 500 MG/100 ML BAG IVPB SCH (09:00)
[2017-08-07] MEDS ORDERED: NON-FORMULARY MEDICATION 1 EACH EACH (Lactose-Reduced Food [Ensure Plus] 1 BOTTLE) PO SCH (09:15)
--- NOTE | 2017-08-07 09:29 | Event Note ---
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 He has been recently seen in this hospital on 08/05/2017 for the similar symptoms, however he left AMA the next day. Abdominal CT on 08/05/2017 revealed creased size of right adrenal mass, possible pneumonia, thoracic spine metastases, and multiple pulmonary nodules. He returned to the hospital again on 08/07/2017 for nausea/ vomiting/abdominal pain after eating several chilies and large meals. Repeat KUB revealed moderate stool. I examined the patient this morning. His vital signs were stable. His belly is soft, nondistended with positive bowel sounds. His abdominal pain is diffuse rather than focal. The rest part of the physical exam was unremarkable. Assessment/plan Nausea/vomiting/abdominal pain - Likely caused by constipation, resume home meds lactulose. Continue IV fluid. - If no bowel movement, will give enema. Stage IV lung cancer - Dr. Gil consulted. - Pain control and supportive care. Pneumonia - Continue IV Levaquin. Leukocytosis - No fever, no obvious source of infection. - Repeat CBC in a.m. The other comorbidities including hypertension and COPD - Stable continue current treatment with home medications.
[2017-08-07] MEDS: Ondansetron 4 MG/2 ML VIAL IVP SCH ×3 (12:01→23:46)
[2017-08-07] MEDS ORDERED: *HR* Promethazine 25 MG/ML VIAL IVP PRN (14:24)
[2017-08-07] MEDS: OXYCODONE Oral CONC 10 MG/0.5 ML ORAL.SYG SL PRN (14:36)
[2017-08-07] MEDS: (Fluticasone/Vilanterol [Breo Ellipta 100-25 Mcg Inh] IH SCH (14:58)
[2017-08-07] MEDS: Metoclopramide 10 MG/2 ML VIAL IVP PRN ×2 (15:20→21:06)
[2017-08-07] MEDS: 0.9 % Sodium Chloride 1,000 ML IVC SCH ×2 (15:23→23:32)
[2017-08-07] MEDS: *HR* Heparin 5,000 UNIT/ML VIAL SQ SCH (17:46)
[2017-08-08] MEDS: *HR* Heparin 5,000 UNIT/ML VIAL SQ SCH ×2 (05:16→17:48)
[2017-08-08] MEDS: OXYCODONE Oral CONC 10 MG/0.5 ML ORAL.SYG SL PRN ×3 (05:17→19:34)
[2017-08-08] MEDS: Ondansetron 4 MG/2 ML VIAL IVP SCH ×4 (05:17→23:13)
[2017-08-08 08:27] LABS: BUN/Creatinine Ratio 17 (6-26); Blood Urea Nitrogen 11 mg/dL (6-20); Calcium 8.4 mg/dL (8.6-10.3); Carbon Dioxide 27 mEq/L (23-29); Chloride 107 mEq/L (98-107); Glucose 79 mg/dL (70-105); Osmolality,Calculated 282 (280-300); Potassium 3.9 mEq/L (3.5-5.1); Sodium 137 mEq/L (136-145); eGFR For African Americans > 60 (> 60); eGFR For Non-African Americans > 60 (> 60)
[2017-08-08 08:38] LABS: Basophils % 0.3 %; Eosinophils % 0.5 %; Hematocrit 34.8 % (37.5-50.1); Hemoglobin 11.2 g/dL (12.9-16.9); Immature Granulocytes % 0.7 % (0-4); Lymphocytes # 1.3 K/mcL (0.6-4.6); Lymphocytes % 20.9 %; Mean Corpuscular HGB Conc 32.2 g/dL (31.6-35.5); Mean Corpuscular Hemoglobin 31.1 pg (28.0-33.3); Mean Corpuscular Volume 96.7 fL (83.0-100.0); Mean Platelet Volume 9.2 fL (9.4-12.4); Monocytes # 0.5 K/mcL (0.0-1.3); Monocytes % 7.5 %; Neutrophils # 4.2 K/mcL (1.6-8.9); Platelet Count 302 K/mcL (140-400); Red Cell Distribution Width 13.7 % (11.5-14.5); Segmented Neutrophils % 70.1 %
[2017-08-08] MEDS: 0.9 % Sodium Chloride 1,000 ML IVC SCH ×2 (08:50→23:13)
[2017-08-08] MEDS: Aspirin Enteric Coated 81 MG Tablet PO SCH (08:50)
--- NOTE | 2017-08-08 09:44 | Internal Med Progress Note ---
Date of Encounter: 08/08/17 Time of Encounter: 10:01 - Assessment and plan (1) Abdominal pain Current Visit: Yes Status: Acute Assessment and plan: With associated nausea and vomiting. ABD CT showed possible progressive metastatic disease otherwise no evidence of obstruction or ileus to explain abdominal pain, nausea/vomiting. KUB with moderate stool load, possibly contributing to abdominal pain. Denies abdominal pain on 08/08/17 exam. Aggressive bowel regimen added as noted below. Advance diet as tolerated. Qualifiers: Abdominal location: generalized Qualified Code(s): R10.84 - Generalized abdominal pain (2) Constipation Current Visit: Yes Status: Acute Assessment and plan: Symptomatic with abdominal pain, nausea vomiting. ABD CT with evidence of progressive metastatic disease otherwise nonacute. KUB with moderate amount of stool. Refusing enema. MiraLAX, Colace, senna added. Qualifiers: Constipation type: other constipation type Qualified Code(s): K59.09 - Other constipation (3) Non-small cell cancer of right lung Current Visit: No Status: Chronic Assessment and plan: per hx. Follows with Dr. Magdaleno. Completed concurrent chemoradiation. ABD CT with enlarging right adrenal gland mass consistent with progressive metastatic disease and nonspecific patchy airspace disease concerning for pneumonia although disease progression is not excluded. Oncology consulted (4) Community acquired bacterial pneumonia Current Visit: Yes Status: Acute Assessment and plan: ABD CT with right upper lobe opacity concerning for pneumonia (of note 07/[address] showed right upper lobe collapse with residual scarring secondary to radiation fibrosis). Clinically does not appear acute or toxic, WBC 15 K on arrival, afebrile, lactic acid normal. Unclear if true pneumonia or radiation-induced changes. Continue IV Levaquin for now. Respiratory PCR, urinary antigens pending. (5) COPD (chronic obstructive pulmonary disease) Current Visit: Yes Status: Chronic Assessment and plan: per hx. No evidence of exacerbation. Continue treating for pneumonia as noted above. Qualifiers: COPD type: unspecified COPD Qualified Code(s): J44.9 - Chronic obstructive pulmonary disease, unspecified (6) Acute deep vein thrombosis (DVT) of right upper extremity Current Visit: No Status: Acute Assessment and plan: in 07/2016. Was treated with Eliquis at that time. Qualifiers: Affected thrombotic vein of extremity: axillary Qualified Code(s): I82.A11 - Acute embolism and thrombosis of right axillary vein (7) DVT prophylaxis Current Visit: Yes Status: Acute Assessment and plan: heparin - Subjective Interval history: Seen and examined at bedside. Patient is new to me, information obtained from chart review and patient report. Patient says he is overall improved. Denies abdominal pain. No further nausea vomiting. Says he is tolerating liquid diet would like to advance diet if possible. He also reports small BM yesterday. Of note patient was agreeable to taking enema however when RN went to administer he refused. No chest pain, no shortness of breath, no fevers, no chills. Has dry, nonproductive cough. - Constitutional Vitals: Temp Pulse Resp BP Pulse Ox 98.5 F 79 16 112/75 95 08/08/17 06:00 08/08/17 06:00 08/08/17 06:00 08/08/17 06:00 08/08/17 06:00 General appearance: Present: cachectic, A&O X 3, severe distress, underweight - Head Head exam: Present: atraumatic, normocephalic - Eye Eye exam: Present: PERRL, conjuntiva pink, sclera anicteric Pupils: Present: PERRL - Neck Neck exam general surgery: Present: supple, trachea midline. Absent: lymphadenopathy - Respiratory Respiratory exam: Present: CTAB. Absent: accessory muscle use, rales, rhonchi, wheezes - Cardiovascular Cardiovascular exam: Present: RRR, +S1, +S2. Absent: diastolic murmur, gallop, rubs, systolic murmur - GI/Abdominal GI/Abdominal exam: Present: normal bowel sounds, soft, no peritoneal signs. Absent: distended, tenderness - Extremities Exam Extremities exam: Present: warm, radial pulses palpable and symmetrical. Absent : calf tenderness, cyanotic, pedal edema - Neurological Exam Neurological exam: Present: CN II-XII intact, oriented X3, no focal deficits. Absent: pronater drift, facial droop, speech deficit - Skin Skin exam: Present: dry, intact Internal Medicine: Result - Labs CBC & Chem 7: 08/08/17 06:47 08/08/17 06:47 Labs: Short CBC 08/08/17 Range/Units 06:47 WBC 6.0 D (4.3-11.1) K/mcL Hgb 11.2 L (12.9-16.9) g/dL Hct 34.8 L (37.5-50.1) % Plt Count 302 (140-400) K/mcL Neutrophils # 4.2 (1.6-8.9) K/mcL BMP 08/08/17 06:47 Sodium 137 Potassium 3.9 Chloride 107 Carbon Dioxide 27 BUN 11 Creatinine 0.64 L Glucose 79 Calcium 8.4 L Consult Discharge Plan - Plan Referrals: Skyler Yost DO [Primary Care Provider] -
[2017-08-08] MEDS: (Fluticasone/Vilanterol [Breo Ellipta 100-25 Mcg Inh] IH SCH (10:10)
[2017-08-08] MEDS: Levofloxacin 750 MG/150 ML 750 MG/150 ML BAG IVPB SCH (10:17)
--- NOTE | 2017-08-08 10:31 | Oncology Inp Consult Note ---
Date of Encounter: 08/08/17 Time of Encounter: 09:45 Assessment and Plan (1) Abdominal pain Status: Acute Assessment and plan: This appears consistent with constipation. Agree with approach by primary team. Continue with stool softeners and MiraLAX. Would be reasonable to give a dose of magnesium citrate if no response by end of day today. Qualifiers: Abdominal location: generalized Qualified Code(s): R10.84 - Generalized abdominal pain (2) Non-small cell cancer of right lung Status: Chronic Assessment and plan: This gentleman has a known history of metastatic non-small cell carcinoma of the right upper lobe the lung. He has minimal progression of a right adrenal metastasis as well as a possible new T4 sclerotic lesion. Personal review of imaging reveals neither of these lesions to be a cause of concern or acute pain. We have arranged for follow-up with Dr. Paul this Wednesday. We discussed three options: reinitiation of immunotherapy or chemotherapy., radiation therapy (which would not be a standard option) or hospice. I recommend he proceed with further immunotherapy. At this juncture, he was not willing to proceed with furhter therapy. The patient had many concerns and misinformation regarding this therapy. These were clarified today. Later during our consulation, his daughter arrived and the two began to argue with regards to his willingness to proceed with therapy. Again, many questions were addressed and he is willing to meet with Dr. Paul this Wednesday. He is willing to consider immunotherapy moving forward after our discussion. No other acute need from our perspective. We will not be willing to refill his pain medication at this current time. He will have to reestablish himself in our clinic prior to us being comfortable with this process given his prior history. Of note, I was never contacted for this consultation. I apologize for the delay in his consultation. He may be discharged from my perspective. We will otherwise sign off. Do not hesitate to call my cell phone at [phone] with concerns or questions - Data of Consult Requesting Physician: Addy Wagoner MD Primary Care Provider: Mak Christopher - Consult Narrative Reason for consult: Patient known to you History of present illness: Mr. Burris is a 56 year old male who is known to our practice and was just evaluated by our nurse practitioner 08/06/2017 during his most recent hospital stay for a known history of metastatic non-small cell carcinoma of the right upper lobe of the lung with metastatic adrenal recurrence in November 2016. Patient was most recently treated with a brief course of nivolumab every 2 weeks and completed his last treatment 02/09/2017 and since that time has failed to follow-up with our clinic. He has been admitted to the hospital earlier this month with pneumonia. He was discharged on August 06 and returned the day with abdominal pain after eating a significant amount of food. He has not had a regular bowel movement for some time. Just this morning, he passed a few ha of stool. The primary team's placement Colace and MiraLAX after refusing an enema. He denies any other new aches or pains. His chronic right upper lung discomfort which is stable. No headache, blurred or double vision. Past Med Surg Social Fam HX - Past Medical History Medical history: cancer, COPD, other Psychiatric history: no psych history - Past Surgical History Surgical History: no surgical history - Social History Smoking Status: Former smoker Smokeless Tobacco Status: No Alcohol use: none Drug use: none - Family History Mother Living Status: Hx Family Cardiac Disorders: Yes Hx Family Cancer: Yes Hx Family Endocrine Disorder: Yes (DM) Father Hx Family Respiratory Disorders: Yes (COPD) Medications and Allergies Magic Mouthwash [Magic Mouthwash BLM] 10 ml PO QID PRN #240 ml 05/12/16 [Rx] Ondansetron HCl [Zofran] 4 mg PO Q6H PRN #30 tablet 05/12/16 [Rx] Prochlorperazine Maleate [Compazine] 10 mg PO Q6HR PRN #60 tablet 05/12/16 [Rx] Ferrous Sulfate [Iron] 325 mg PO DAILY #30 tablet 08/05/16 [Rx] Aspirin Enteric Coated [Aspirin EC] 81 mg PO DAILY #30 tablet. 09/04/16 [Rx] Omeprazole [PriLOSEC] 20 mg PO DAILY #30 cap 09/04/16 [Rx] Guaifenesin/Codeine Phosphate [Guaifenesin-Codeine Syrup] 5 - 10 ml PO Q4H PRN # 473 liquid 10/15/16 [Rx] Lactose-Reduced Food [Ensure Plus] 1 bottle PO TID #90 can 02/16/17 [Rx] Albuterol Sulfate [Ventolin Hfa] 2 puff IH Q4H PRN 08/05/17 [History] Fluticasone/Vilanterol [Breo Ellipta 100-25 Mcg INH] 1 puff IH DAILY 08/05/17 [ History] OxyCODONE Immed Rel [Roxicodone 10 MG] 10 - 20 mg PO Q6H PRN 08/05/17 [History] 3 Allergy/AdvReac Type Severity Reaction Status Date / Time No Known Allergies Allergy Verified 08/07/17 12:10 All systems: reviewed and no additional remarkable complaints except as stated Constitutional: Present: fatigue Eyes: Present: as per HPI Ears: Present: as per HPI Nose, mouth and throat: Present: as per HPI Cardiovascular: Present: dyspnea on exertion Respiratory: Present: pain with cough Gastrointestinal: Present: constipation Genitourinary: as per HPI Musculoskeletal: Present: as per HPI Neurological: Present: as per HPI Hematologic/Lymphatic: Present: as per HPI Oncology - Exam - Constitutional Vitals: Temp Pulse Resp BP Pulse Ox 98.5 F 79 16 112/75 95 08/08/17 06:00 08/08/17 06:00 08/08/17 06:00 08/08/17 06:00 08/08/17 06:00 General appearance: disheveled, no acute distress, thin - Head Head exam: Present: atraumatic, normal inspection, normocephalic - Eye Eye exam: Present: normal appearance, conjuntiva pink, sclera anicteric - ENT ENT exam: Present: mucous membranes moist, normal oropharynx - Neck Neck exam: Present: full ROM - Respiratory Respiratory exam: Present: CTAB - Cardiovascular Cardiovascular exam: Present: RRR - GI/Abdominal GI/Abdominal exam: Present: firm, normal bowel sounds, soft - Extremities Exam Extremities exam: Present: normal inspection - Back Exam Back exam: Present: normal inspection - Neurological Exam Neurological exam: Present: alert, CN II-XII intact, no focal deficits Oncology - Results Labs: Short CBC 08/08/17 Range/Units 06:47 WBC 6.0 D (4.3-11.1) K/mcL Hgb 11.2 L (12.9-16.9) g/dL Hct 34.8 L (37.5-50.1) % Plt Count 302 (140-400) K/mcL Neutrophils # 4.2 (1.6-8.9) K/mcL BMP 08/08/17 06:47 Sodium 137 Potassium 3.9 Chloride 107 Carbon Dioxide 27 BUN 11 Creatinine 0.64 L Glucose 79 Calcium 8.4 L SUPINE VIEW(S) OF THE ABDOMEN 08/07/2017 2:31 am COMPARISON: None. HISTORY: ORDERING SYSTEM PROVIDED HISTORY: Abd pain Nausea, vomiting, abdominal pain. History metastatic adrenal cancer. FINDINGS: There is a mild to moderate gas and stool load in the right and transverse colon. Bowel gas pattern is otherwise unremarkable. No definite bowel obstruction. No abnormal calcifications. No acute bone finding. CT OF THE ABDOMEN AND PELVIS WITHOUT CONTRAST 08/05/2017 3:26 pm FINDINGS: Lower Chest: Lower mediastinal structures are unremarkable. Patchy airspace opacities are present involving the right lower lobe anteriorly, new from prior study. There is background emphysema present. Organs: Evaluation of the solid organs is limited by lack of contrast. No acute abnormality identified involving the liver, spleen, pancreas, kidneys, or left adrenal gland. There is an enlarging mass of the right adrenal gland consistent with metastatic disease. This now measures 2.5 x 3.7 cm, previously measuring 1.4 x 1.3 cm. GI/Bowel: The small bowel and colon are normal in caliber. Pelvis: The urinary bladder and distal ureters are unremarkable. Prostate and seminal vesicles appear unremarkable for age. No free fluid in the pelvis. No pelvic lymphadenopathy is identified. Peritoneum/Retroperitoneum: The abdominal aorta is normal in caliber. No free air or free fluid identified within the abdomen. No focal inflammatory process is seen. Bones/Soft Tissues: Bone mineralization appears decreased. No acute osseous abnormality identified. CT/CT abd pelvis wo no iv no oral IMPRESSION: 1. No acute findings within the abdomen. 2. Enlarging right adrenal gland mass consistent with progressive metastatic disease. 3. Nonspecific patchy airspace opacity has developed involving the anterior aspect of the right lower lobe. This is concerning for pneumonia although disease progression is not excluded. This is incompletely evaluated. Moderate background emphysema. CT OF THE CHEST WITHOUT CONTRAST, 07/08/2017 7:28 am FINDINGS: Mediastinum: No significant mediastinal adenopathy is detected. No significant cardiomegaly is identified. Stable precarinal lymph node measures 1.0 x 1.2 cm. Lungs/pleura: Stable right upper lobe collapse with presence of suspected fibrosus presumably related to radiation. Residual mass within the right upper lobe measures 3.6 x 1.3 cm has slightly decreased in size. There is evidence of moderate COPD. There is a stable 4 mm pulmonary nodule identified on axial image number 33 series 2. A 4 mm nodule is identified within the left upper lobe near the lingula identified on image 107, previously measuring 3 mm. There is a new 3 mm nodule within the left lower lobe on image 121. Within the right middle lobe there is a 7 mm nodule identified on image 47. Additional nodule within the right middle lobe measures 5 mm on image 56. Both these nodules are stable. Upper Abdomen: There is a right adrenal mass measuring 3.3 x 2.5 cm which has significantly increased in size previously measuring 1.4 x 1.4 cm. Soft Tissues/Bones: No acute osseous abnormality is identified. There is a sclerotic focus within the T4 vertebral body near the right pedicle suspicious for osseous metastasis. This finding measures [address]/CT chest wo con IMPRESSION: Stable right upper lobe collapse with presence residual scarring likely related to radiation fibrosis. Residual right upper lobe mass has slightly decreased in size measuring 3.6 x 1.3 cm. New sclerotic focus within the T4 vertebral body near the pedicle suspicious for new osseous metastasis. Enlarging right adrenal metastasis measuring 3.3 cm previously measuring 1.4 cm. Two stable nodules within the right middle lobe for which continued follow-up is recommended. Slight increase in size of a nodule within the left upper lobe near the lingula measuring 3 mm. New 3 mm left lower lobe nodule is identified. Continued surveillance is recommended. Consult Discharge Plan - Plan Referrals: Skyler Yost DO [Primary Care Provider] -
[2017-08-08 13:03] LABS: Adenovirus Not Detected (Not Detect)
[2017-08-08 13:04] LABS: Bordetella Pertussis Not Detected (Not Detect); Chlamydophila pneumoniae Not Detected (Not Detect); Coronavirus 229E Not Detected (Not Detect); Coronavirus HKU1 Not Detected (Not Detect); Coronavirus NL63 Not Detected (Not Detect); Coronavirus OC43 Not Detected (Not Detect); Human Metapneumovirus Not Detected (Not Detect); Human Rhinovirus/Enterovirus Not Detected (Not Detect); Influenza A Subtype 2009 H1 Not Detected (Not Detect); Influenza A Untypeable Not Detected (Not Detect); Influenza B Not Detected (Not Detect); Mycoplasma pneumoniae Not Detected (Not Detect); Parainfluenza Virus 1 Not Detected (Not Detect); Parainfluenza Virus 2 Not Detected (Not Detect); Parainfluenza Virus 3 Not Detected (Not Detect); Parainfluenza Virus 4 Not Detected (Not Detect); Respiratory Syncytial Virus Not Detected (Not Detect)
[2017-08-09] MEDS: Ondansetron 4 MG/2 ML VIAL IVP SCH ×3 (05:15→17:59)
[2017-08-09] MEDS: *HR* Heparin 5,000 UNIT/ML VIAL SQ SCH ×2 (05:16→17:58)
[2017-08-09] MEDS: OXYCODONE Oral CONC 10 MG/0.5 ML ORAL.SYG SL PRN ×3 (05:21→19:45)
[2017-08-09 05:38] LABS: Hematocrit 36.6 % (37.5-50.1); Hemoglobin 12.1 g/dL (12.9-16.9); Mean Corpuscular HGB Conc 33.1 g/dL (31.6-35.5); Mean Corpuscular Hemoglobin 31.5 pg (28.0-33.3); Mean Corpuscular Volume 95.3 fL (83.0-100.0); Mean Platelet Volume 8.7 fL (9.4-12.4); Platelet Count 249 K/mcL (140-400); Red Blood Count 3.84 M/mcL (4.19-5.50); Red Cell Distribution Width 13.7 % (11.5-14.5)
[2017-08-09 05:58] LABS: BUN/Creatinine Ratio 20 (6-26); Blood Urea Nitrogen 13 mg/dL (6-20); Calcium 8.6 mg/dL (8.6-10.3); Carbon Dioxide 29 mEq/L (23-29); Chloride 103 mEq/L (98-107); Glucose 94 mg/dL (70-105); Osmolality,Calculated 282 (280-300); Potassium 4.5 mEq/L (3.5-5.1); Sodium 136 mEq/L (136-145); eGFR For African Americans > 60 (> 60); eGFR For Non-African Americans > 60 (> 60)
[2017-08-09] MEDS: 0.9 % Sodium Chloride 1,000 ML IVC SCH ×3 (07:57→18:00)
[2017-08-09] MEDS: Levofloxacin 750 MG/150 ML 750 MG/150 ML BAG IVPB SCH (08:34)
[2017-08-09] MEDS: Sennosides 8.6 MG TABLET PO SCH (08:34)
[2017-08-09] MEDS: Aspirin Enteric Coated 81 MG Tablet PO SCH (08:35)
[2017-08-09] MEDS: (Fluticasone/Vilanterol [Breo Ellipta 100-25 Mcg Inh] IH SCH (08:35)
--- NOTE | 2017-08-09 09:39 | Internal Med Progress Note ---
Date of Encounter: 08/09/17 Time of Encounter: 09:39 - Assessment and plan (1) Constipation Current Visit: Yes Status: Acute Assessment and plan: Symptomatic with abdominal pain, nausea vomiting. ABD CT with evidence of progressive metastatic disease otherwise nonacute. KUB with moderate amount of stool. Refusing enema. MiraLAX, Colace, senna added. He is agreeable to magnesium citrate. Qualifiers: Constipation type: other constipation type Qualified Code(s): K59.09 - Other constipation (2) Abdominal pain Current Visit: Yes Status: Acute Assessment and plan: With associated nausea and vomiting. ABD CT showed possible progressive metastatic disease otherwise no evidence of obstruction or ileus to explain abdominal pain, nausea/vomiting. KUB with moderate stool load, possibly contributing to abdominal pain. Denies abdominal pain on 08/08/17 exam. Aggressive bowel regimen added as noted above. Abdominal pain resolved and tolerating her diet as of 08/09. Qualifiers: Abdominal location: generalized Qualified Code(s): R10.84 - Generalized abdominal pain (3) Non-small cell cancer of right lung Current Visit: No Status: Chronic Assessment and plan: per hx. Follows with Dr. Magdaleno. Completed concurrent chemoradiation. ABD CT with enlarging right adrenal gland mass consistent with progressive metastatic disease and nonspecific patchy airspace disease concerning for pneumonia although disease progression is not excluded. He was seen by oncology this hospitalization and patient is considering immunotherapy. Acute oncological needs at this time. Can follow up outpatient with Dr. Magdaleno on 08/11/17. (4) Community acquired bacterial pneumonia Current Visit: Yes Status: Acute Assessment and plan: ABD CT with right upper lobe opacity concerning for pneumonia (of note 07/[address] showed right upper lobe collapse with residual scarring secondary to radiation fibrosis). Clinically does not appear acute or toxic, WBC 15K on arrival, afebrile, lactic acid normal. WBC now normalized. Respiratory PCR and sputum culture negative. Unclear if true pneumonia or radiation-induced changes. Continue IV Levaquin for now. Urinary antigens pending. (5) COPD (chronic obstructive pulmonary disease) Current Visit: Yes Status: Chronic Assessment and plan: per hx. No evidence of exacerbation. Continue treating for pneumonia as noted above. Qualifiers: COPD type: unspecified COPD Qualified Code(s): J44.9 - Chronic obstructive pulmonary disease, unspecified (6) History of DVT (deep vein thrombosis) Current Visit: Yes Status: Acute Assessment and plan: in 07/2016 suzie BAUER. Was treated with Eliquis at that time. (7) DVT prophylaxis Current Visit: Yes Status: Acute Assessment and plan: heparin - Subjective Interval history: Seen and examined at bedside; and in bed. Appears comfortable. Says he only had a small bowel movement yesterday. No abdominal pain, he is passing gas. Tolerating regular diet. Still refusing enema/suppository at that time. Says he wants to try the other medications first. He is agreeable to mag citrate. - Constitutional Vitals: Temp Pulse Resp BP Pulse Ox 97.4 F L 89 15 136/91 97 08/09/17 07:31 08/09/17 07:31 08/09/17 07:31 08/09/17 07:31 08/09/17 07:31 General appearance: Present: cachectic, A&O X 3, no acute distress, severe distress, underweight - Head Head exam: Present: atraumatic, normocephalic - Eye Eye exam: Present: PERRL, conjuntiva pink, sclera anicteric Pupils: Present: PERRL - Neck Neck exam general surgery: Present: supple, trachea midline. Absent: lymphadenopathy - Respiratory Respiratory exam: Present: CTAB. Absent: accessory muscle use, rales, rhonchi, wheezes - Cardiovascular Cardiovascular exam: Present: RRR, +S1, +S2. Absent: diastolic murmur, gallop, rubs, systolic murmur - GI/Abdominal GI/Abdominal exam: Present: normal bowel sounds, soft, no peritoneal signs. Absent: distended, tenderness - Extremities Exam Extremities exam: Present: warm, radial pulses palpable and symmetrical. Absent : calf tenderness, cyanotic, pedal edema - Neurological Exam Neurological exam: Present: CN II-XII intact, oriented X3, no focal deficits. Absent: pronater drift, facial droop, speech deficit - Skin Skin exam: Present: dry, intact Internal Medicine: Result - Labs CBC & Chem 7: 08/09/17 05:14 08/09/17 05:14 Labs: Short CBC 08/09/17 Range/Units 05:14 WBC 5.4 (4.3-11.1) K/mcL Hgb 12.1 L (12.9-16.9) g/dL Hct 36.6 L (37.5-50.1) % Plt Count 249 (140-400) K/mcL BMP 08/09/17 05:14 Sodium 136 Potassium 4.5 Chloride 103 Carbon Dioxide 29 BUN 13 Creatinine 0.66 L Glucose 94 Calcium 8.6 Consult Discharge Plan - Plan Referrals: Skyler Yost DO [Primary Care Provider] -
[2017-08-10] MEDS: Ondansetron 4 MG/2 ML VIAL IVP SCH ×2 (00:21→06:32)
[2017-08-10] MEDS: 0.9 % Sodium Chloride 1,000 ML IVC SCH (02:29)
[2017-08-10] MEDS: OXYCODONE Oral CONC 10 MG/0.5 ML ORAL.SYG SL PRN ×2 (04:35→11:13)
[2017-08-10 05:25] LABS: Hematocrit 37.6 % (37.5-50.1); Hemoglobin 12.2 g/dL (12.9-16.9); Mean Corpuscular HGB Conc 32.4 g/dL (31.6-35.5); Mean Corpuscular Volume 95.4 fL (83.0-100.0); Mean Platelet Volume 8.9 fL (9.4-12.4); Platelet Count 296 K/mcL (140-400); Red Blood Count 3.94 M/mcL (4.19-5.50); Red Cell Distribution Width 13.4 % (11.5-14.5)
[2017-08-10] MEDS: *HR* Heparin 5,000 UNIT/ML VIAL SQ SCH (06:32)
[2017-08-10 07:55] VITALS: BP 126/83
--- NOTE | 2017-08-10 08:28 | Discharge Summary ---
Orders not resulted at time of discharge: Pending orders 08/07/17 15:04 ACTH Routine 08/08/17 07:57 Legionella Antigen [RM] Stat S. Pneumoniae Antigen [RM] Stat 08/11/17 04:00 Complete Blood Count w/o Diff [HEME] AM 0400 08/12/17 04:00 Complete Blood Count w/o Diff [HEME] AM 0400 08/13/17 04:00 Complete Blood Count w/o Diff [HEME] AM 040 Date of Encounter: 08/10/17 Time of Encounter: 08:25 - Discharge Diagnosis (1) Constipation Priority: Primary Status: Acute Comments: symptomatic with abdominal pain, nausea vomiting. ABD CT with evidence of progressive metastatic disease otherwise no cute obstruction/ileus. KUB with moderate amount of stool. Had satisfactory movement with aggressive bowel regimen. Symptoms resolved at time of discharge. Cont MiraLAX, Colace at discharge. Qualifiers: Constipation type: other constipation type Qualified Code(s): K59.09 - Other constipation (2) Abdominal pain Priority: Primary Status: Resolved Comments: With associated nausea and vomiting. ABD CT showed possible progressive metastatic disease otherwise no evidence of obstruction or ileus to explain abdominal pain, nausea/vomiting. KUB with moderate stool load; suspect constipation contributing to abdominal pain. Tolerating regular diet and abdominal pain-free at time of discharge. Qualifiers: Abdominal location: generalized Qualified Code(s): R10.84 - Generalized abdominal pain (3) Non-small cell cancer of right lung Priority: Secondary Status: Chronic Comments: per hx. Follows with Dr. Magdaleno. Completed concurrent chemoradiation. ABD CT with enlarging right adrenal gland mass consistent with progressive metastatic disease and nonspecific patchy airspace disease concerning for pneumonia although disease progression is not excluded. He was seen by oncology this hospitalization and patient is considering immunotherapy. Has follow up with Dr. Magdaleno on 08/11/17. (4) Community acquired bacterial pneumonia Priority: Primary Status: Acute Comments: ABD CT with right upper lobe opacity concerning for pneumonia (of note 07/[address] showed right upper lobe collapse with residual scarring secondary to radiation fibrosis). Clinically did not appear acute or toxic, WBC 15K on arrival, afebrile, lactic acid normal. WBC now normalized. Respiratory PCR and sputum culture negative. Urinary antigens ordered but not completed. Unclear if true pneumonia or radiation-induced changes however given his history of malignancy will continue Levaquin (to complete a seven-day course). Follow-up with PCP within 1-2 weeks. (5) COPD (chronic obstructive pulmonary disease) Priority: Secondary Status: Chronic Comments: per hx. No evidence of exacerbation. Continue treating for pneumonia as noted above. Qualifiers: COPD type: unspecified COPD Qualified Code(s): J44.9 - Chronic obstructive pulmonary disease, unspecified (6) History of DVT (deep vein thrombosis) Priority: Secondary Status: Chronic Comments: in 07/2016 to [facility]. Was treated with Eliquis at that time. Hospital course: Mr. Burris is a 56 year old male with PMH COPD and non-small cell lung cancer presented to [facility] on 08/07/2017 with recurrent abdominal pain with nausea and vomiting. Of note the patient presented a few days earlier but left AMA on 08/06/2017. He was placed in observation status for further workup and treatment. He underwent an abdominal CT which showed possible progression of metastatic disease, otherwise nonacute. A KUB was done that showed moderate amount of stool load. Suspect his abdominal pain was secondary to constipation. Symptoms resolved after having several satisfactory bowel movements. He was tolerating a regular diet without nausea vomiting or abdominal pain at time of discharge. He was also found to have suspected pneumonia which was treated with Levaquin. He was discharged home with outpatient follow-up. Please see assessment and plan for further details. Discharge discussed with: patient - Time Spent with Patient Total time spent providing and/or coordinating discharge services: - Discharge Medications Prescriptions: Docusate [Colace] 100 mg PO BID #60 capsule levoFLOXacin [Levaquin] 750 mg PO DAILY #4 tablet Polyethylene Glycol 3350 [MiraLAX] 17 gm PO DAILY #30 powd.pack Home Medications: Magic Mouthwash [Magic Mouthwash BLM] 10 ml PO QID PRN #240 ml 05/12/16 [Rx] Ondansetron HCl [Zofran] 4 mg PO Q6H PRN #30 tablet 05/12/16 [Rx] Prochlorperazine Maleate [Compazine] 10 mg PO Q6HR PRN #60 tablet 05/12/16 [Rx] Ferrous Sulfate [Iron] 325 mg PO DAILY #30 tablet 08/05/16 [Rx] Aspirin Enteric Coated [Aspirin EC] 81 mg PO DAILY #30 tablet.dr 09/04/16 [Rx] Omeprazole [PriLOSEC] 20 mg PO DAILY #30 cap 09/04/16 [Rx] Guaifenesin/Codeine Phosphate [Guaifenesin-Codeine Syrup] 5 - 10 ml PO Q4H PRN # 473 liquid 10/15/16 [Rx] Lactose-Reduced Food [Ensure Plus] 1 bottle PO TID #90 can 02/16/17 [Rx] Albuterol Sulfate [Ventolin Hfa] 2 puff IH Q4H PRN 08/05/17 [History] Fluticasone/Vilanterol [Breo Ellipta 100-25 Mcg INH] 1 puff IH DAILY 08/05/17 [ History] OxyCODONE Immed Rel [Roxicodone 10 MG] 10 - 20 mg PO Q6H PRN 08/05/17 [History] Docusate [Colace] 100 mg PO BID #60 capsule 08/10/17 [Rx] Polyethylene Glycol 3350 [MiraLAX] 17 gm PO DAILY #30 powd.pack 08/10/17 [Rx] levoFLOXacin [Levaquin] 750 mg PO DAILY #4 tablet 08/10/17 [Rx] Allergies/Adverse Reactions: 3 Allergy/AdvReac Type Severity Reaction Status Date / Time No Known Allergies Allergy Verified 08/07/17 12:10 Date of admission: 08/07/17 06:24 Primary care physician: Mak Christopher Consults: 08/07/17 06:26 Consult to Oncology Hematology [CONS] Routine Consulting Provider: Talha Gil Reason for Consult: lung cancer with mets; treatment options to discuss with family per patietn and family request. Call Completed: No Discharging clinician: Marissa Olson Anticipated date of discharge: 08/10/17 - Constitutional Vitals: Temp Pulse Resp BP Pulse Ox 98.0 F 61 14 126/83 94 08/10/17 06:40 08/10/17 06:40 08/10/17 06:40 08/10/17 06:40 08/10/17 06:40 General appearance: Present: cachectic, A&O X 3, no acute distress, severe distress, underweight - Head Head exam: Present: atraumatic, normocephalic - Eye Eye exam: Present: PERRL, conjuntiva pink, sclera anicteric Pupils: Present: PERRL - Neck Neck exam general surgery: Present: supple, trachea midline. Absent: lymphadenopathy - Respiratory Respiratory exam: Present: CTAB. Absent: accessory muscle use, rales, rhonchi, wheezes - Cardiovascular Cardiovascular exam: Present: RRR, +S1, +S2. Absent: diastolic murmur, gallop, rubs, systolic murmur - GI/Abdominal GI/Abdominal exam: Present: normal bowel sounds, soft, no peritoneal signs. Absent: distended, tenderness - Extremities Exam Extremities exam: Present: warm, radial pulses palpable and symmetrical. Absent : calf tenderness, cyanotic, pedal edema - Neurological Exam Neurological exam: Present: CN II-XII intact, oriented X3, no focal deficits. Absent: pronater drift, facial droop, speech deficit - Skin Skin exam: Present: dry, intact - Patient Status Disposition: Home, Self-Care Condition: Good Functional capacity at discharge: independent ambulation Overall status at discharge: patient is back to baseline - Discharge Instructions Instructions: Levofloxacin (By mouth), Polyethylene Glycol 3350 (By mouth), Laxative, Stool Softeners (By mouth), High Fiber Diet (DC), Constipation (DC) Follow Up With: Mis Paul MD [Partnered Physician] - 08/11/17 (You have an appointment on 08/11/2017. Please call office to confirm time.) Skyler Yost DO [Primary Care Provider] - (Please call for follow-up appointment within 1-2 weeks.) - Diet and Activity Activity: increase activity as tolerated Diet: advance to your usual diet
[2017-08-10] MEDS: Aspirin Enteric Coated 81 MG Tablet PO SCH (09:31)
[2017-08-10] MEDS: Levofloxacin 750 MG/150 ML 750 MG/150 ML BAG IVPB SCH (09:31)
[2017-08-10] MEDS: Sennosides 8.6 MG TABLET PO SCH (09:31)
[2017-08-10] MEDS: (Fluticasone/Vilanterol [Breo Ellipta 100-25 Mcg Inh] IH SCH (09:33)
== END 2017-08-10 11:45 | disposition home or self-care (01) | DRG 254 ==
LOC: 3ANU 00:32 → EMEROO 00:32 → 3ANU 02:47
PROVIDERS: ADMIT Internal Medicine; ATTEND Internal Medicine

== ENCOUNTER 2019-08-17 13:56 | Inpatient (IN) ==
[2019-08-17] MEDS ORDERED: [UNRECOGNIZED DRUG - OTHER] PO ONE (15:09)
[2019-08-17] MEDS ORDERED: Morphine Sulfate 2 MG/ML SYRINGE SQ ONE (15:17)
[2019-08-17] MEDS ORDERED: Morphine Sulfate 2 MG/ML SYRINGE IVP PRN (15:27)
[2019-08-17] MEDS ORDERED: *HR* LORazepam 2 MG/ML VIAL IVP PRN (15:29)
[2019-08-17] MEDS ORDERED: Haloperidol Lactate 5 MG/ML VIAL IVP PRN (15:29)
[2019-08-17] MEDS ORDERED: Scopolamine Patch 1.5 MG PATCH.TD72 TD SCH (15:30)
[2019-08-17] MEDS: Atropine Sulfate 1% 40 DROP/2 ML BOTTLE SL PRN ×2 (15:59→23:54)
[2019-08-17] MEDS: *HR* LORazepam 2 MG/ML VIAL IVP PRN ×3 (15:59→23:54)
[2019-08-17] MEDS: Morphine Sulfate 2 MG/ML SYRINGE IVP PRN ×4 (17:05→23:54)
[2019-08-17] MEDS: Nystatin POWDER 30 GM BOTTLE TP SCH (21:26)
[2019-08-18] MEDS: *HR* LORazepam 2 MG/ML VIAL IVP PRN ×4 (03:33→21:33)
[2019-08-18] MEDS: Morphine Sulfate 2 MG/ML SYRINGE IVP PRN ×4 (05:21→18:16)
[2019-08-18] MEDS ORDERED: Acetaminophen 650 MG RECTAL SUPP RC PRN (10:18)
[2019-08-18] MEDS: Nystatin POWDER 30 GM BOTTLE TP SCH ×2 (10:19→21:33)
[2019-08-18 19:13] VITALS: BP 78/48
[2019-08-19] MEDS: Morphine Sulfate 2 MG/ML SYRINGE IVP PRN (00:12)
== END 2019-08-19 01:47 | disposition expired | DRG 951 ==
LOC: 2ANU 14:42
PROVIDERS: ADMIT Internal Medicine Hospice and Palliative Medicine; ATTEND Internal Medicine Hospice and Palliative Medicine